=== PATIENT | male | born 1935 | race Caucasian/White ===

== ENCOUNTER 2020-08-23 12:15 | Inpatient (IN) | payer MEDICARE, BC, SELFPAY ==
[2020-08-23] VITALS (13 sets, daily range): BP systolic 124–155; BP diastolic 62–69; PULSE 102–119; RESP 15–26; TEMP 36.3–36.7; O2SAT 84–98; BMI 14.1
--- NOTE | 2020-08-23 12:19 | ECG_ITS ---
APPROVED REPORT Exam: Resting ECG HR:105 bpm ECG Measurements Heart Rate 105 AXES IA 180 P 80 QRSd 78 QRS 51 QT 362 T 66 QTc 478 Conclusion Sinus tachycardia Nonspecific ST and T wave abnormality Abnormal ECG Electronically signed by : Nehemiah Jc, 08/24/2020 17:01:47
--- NOTE | 2020-08-23 12:25 | XR_ITS ---
PROCEDURE: XR CHEST PORTABLE CLINICAL HISTORY: ams Altered mental status, altered level of consciousness, confusion, disorientation COMPARISON: No exams were available for comparison FINDINGS: The cardiomediastinal silhouette and pulmonary vascularity are within normal limits. There is patchy density in the left lower lobe suggesting a small area of infiltrate with small effusion. Incidental note made carotid artery calcifications. No acute bony abnormalities. IMPRESSION: Patchy left lower lobe infiltrate with small effusion Dictated by: Sonny Irizarry MD 08/23/2020 13:01 Sonny Irizarry MD in [facility] 08/23/2020 13:01
--- NOTE | 2020-08-23 12:26 | CT_ITS ---
PROCEDURE: CT HEAD/BRAIN WO CON CLINICAL INDICATION: ams Altered mental status, altered level of consciousness, confusion, disorientation rotate COMPARISON: No exams were available for comparison TECHNIQUE: Axial images obtained. All CT scans at the facility use one or more dose reduction, viz: automated exposure control, ma/kV adjustment per patient size (including targeted exams where dose is matched to indication, i.e. head), or iterative reconstruction technique. FINDINGS: The images are limited technically secondary to patient's inability to be properly position. Images submitted are essentially oblique coronal images. There is generalized atrophy with hypoattenuation of the periventricular white matter consistent with microangiopathic changes.. There is mild ventriculomegaly left greater than right which may be due to the underlying brain volume loss. There is opacification of the external auditory canal on both sides right more extensive than left consistent with impacted cerumen IMPRESSION: No acute intracranial finding Dictated by: Sonny Irizarry MD 08/23/2020 13:07 Sonny Irizarry MD in [facility] 08/23/2020 13:07
--- NOTE | 2020-08-23 12:33 | HMH.EDAMS ---
ED Disposition Clinical Impression: Cellulitis, PAD (peripheral artery disease) Disposition: Admitted As Inpatient Condition on Discharge: Good - Critical Care Critical Care Time: No Attestation: On , the high probability of a clinically significant, sudden or life threatening deterioration of the following system(s) required my full and direct attention, intervention and personal management. The time I documented below is in addition to time spent performing reported procedures but includes the following listed in this critical care notation. Medical Decision Making - Medical Records MR Comment: Patient is not taking any medications. He has cellulitis involving the left foot. - Prince Inquiry Pt receiving controlled substance: No Prince was queried for this patient: No Vital Signs: 08/23/20 12:16 08/23/20 13:13 08/23/20 13:30 Temperature 97.4 F L Temperature Source Oral Pulse Rate 110 H 108 H Pulse Rate [Radial] 111 H Respiratory Rate 16 26 H 20 Blood Pressure 142/62 H 135/64 Blood Pressure [Right Arm] 155/67 H Blood Pressure Mean 115 100 Blood Pressure Mean [Right Arm] 96 Blood Pressure Position Blood Pressure Position [Right Arm] Sitting 02 Sat by Pulse Oximetry 94 L 94 L Oxygen Delivery Method Room Air 08/23/20 14:00 08/23/20 15:00 08/23/20 15:30 Temperature Temperature Source Pulse Rate 109 H 113 H 102 H Pulse Rate [Radial] Respiratory Rate 24 24 22 Blood Pressure 144/65 H 137/65 143/66 H Blood Pressure [Right Arm] Blood Pressure Mean 91 Blood Pressure Mean [Right Arm] Blood Pressure Position Sitting Sitting Blood Pressure Position [Right Arm] 02 Sat by Pulse Oximetry 94 L 95 94 L Oxygen Delivery Method Room Air Room Air 08/23/20 16:00 08/23/20 16:03 Temperature 98 F Temperature Source Oral Pulse Rate 119 H 112 H Pulse Rate [Radial] Respiratory Rate 22 Blood Pressure 131/68 Blood Pressure [Right Arm] Blood Pressure Mean Blood Pressure Mean [Right Arm] Blood Pressure Position Blood Pressure Position [Right Arm] 02 Sat by Pulse Oximetry Oxygen Delivery Method Room Air - Lab Data Lab Results 08/23/20 13:14: WBC 9.9, RBC 3.56 L, Hgb 11.2 L, Hct 35.5 L, MCV 99.7 H, MCH 31.5 H, MCHC 31.6 L, RDW 13.4, Plt Count 306, MPV 7.5, Neut % (Auto) 83.0 H, Lymph % (Auto) 10.1, [place] % (Auto) 5.6, Eos % (Auto) 1.0, Baso % (Auto) 0.3, Neut # (Auto) 8.3 H, Lymph # (Auto) 1.0, [place] # (Auto) 0.6, Eos # (Auto) 0.1, Baso # (Auto) 0.0 08/23/20 13:14: Sodium 137, Potassium 4.0, Chloride 97 L, Carbon Dioxide 25, Anion Gap 19.0 H, BUN 32 H, Creatinine 1.40 H, Estimated Creat Clear 35, Estimated GFR 48 L, Est GFR ( Amer) 58 L, Glucose 80, Calcium 8.9, Total Bilirubin 1.8 H, AST 47, ALT 20, Alkaline Phosphatase 111, Total Protein 8.4 H, Albumin 4.3, Globulin 4.1 H, Albumin/Globulin Ratio 1.0 L 08/23/20 13:14: Lactate 1.8 08/23/20 13:14: Procalcitonin 0.723 08/23/20 13:14: ESR 60 H 08/23/20 13:14: C-Reactive Protein 80.5 H 08/23/20 14:00: SARS-CoV-2 (PCR) Not detected, Influenza A Untype (PCR) Not detected, Influenza Type B (PCR) Not detected 08/23/20 16:01: Urine Opiates Screen Negative, Urine Methadone Screen Negative, Ur Barbituates Screen Negative, Ur Phencyclidine Scrn Negative, Ur Amphetamines Screen Negative, U Benzodiazepines Scrn Negative, Urine Cocaine Screen Negative, U Marijuana (THC) Screen Negative Result diagrams: 08/26/20 07:40 08/26/20 07:40 Orders (Tests/Meds): ED MEDICATIONS Generic Name Dose Route Start Last Admin Trade Name Freq PRN Reason Stop Dose Admin Albuterol/Ipratropium 3 ml 08/23/20 20:00 08/26/20 14:30 Ipratropium/Albuterol 3 Ml Neb IH 09/22/20 19:59 3 ml QIDRT EVELYNE Administration Aspirin 81 mg 08/25/20 09:00 08/26/20 08:39 Aspirin Ec 81mg Tablet PO 09/24/20 08:59 81 mg DAILY EVELYNE Administration Atorvastatin Calcium 40 mg 08/25/20 21:00 08/25/20 21:02 Atorvastatin 40mg Tablet
--- NOTE | 2020-08-23 12:45 | PC.NURSE ---
PT GONE TO CT
--- NOTE | 2020-08-23 12:58 | PC.NURSE ---
pt daughter at [facility], ER MD in room speaking with her at this time
--- NOTE | 2020-08-23 13:00 | PC.NURSE ---
pt return from CT
[2020-08-23 13:28] LABS: Basophils % 0.3 % (0.1-2.0); Eosinophils # 0.1 K/mm3 (0.0-0.4); Hematocrit 35.5 % (42.0-52.0); Hemoglobin 11.2 g/dL (14.1-18.0); Lymphocytes % 10.1 % (10-50); Mean Corpuscular HGB Conc 31.6 g/dL (31.8-35.4); Mean Corpuscular Hemoglobin 31.5 pg (27.0-31.2); Mean Corpuscular Volume 99.7 fl (80-94); Mean Platelet Volume 7.5 fl (7.4-10.4); Monocytes # 0.6 K/mm3 (0.1-1.0); Monocytes % 5.6 % (1.7-9.3); Neutrophils # 8.3 K/mm3 (1.8-7.8); Platelet Count 306 K/mm3 (142-424); Red Blood Count 3.56 M/mm3 (4.60-6.20); Red Cell Distribution Width 13.4 % (11.5-17.5); White Blood Count 9.9 K/mm3 (4.8-10.8)
[2020-08-23 13:31] LABS: Chloride 97 mmol/L (98-107); Sodium 137 mmol/L (136-145)
[2020-08-23 13:34] LABS: Alanine Aminotransferase 20 U/L (12-78); Albumin Level 4.3 g/dl (3.5-5.0); Alkaline Phosphatase 111 U/L (38-126); Aspartate Amino Transferase 47 U/L (17-59); Bilirubin,Total 1.8 mg/dl (0.2-1.3); Blood Urea Nitrogen 32 mg/dl (9-20); Carbon Dioxide 25 mmol/L (22.0-30.0); Creatinine Clearance Estimated 35 mL/min (50-200); Estimated Glomerular Filt Rate 48 ml/min (>60); GFR (African American) 58 ML/MIN (>60); Globulin 4.1 g/dL (1.3-3.2); Total Protein,Serum 8.4 g/dl (6.3-8.2)
[2020-08-23 13:35] LABS: Calcium 8.9 mg/dl (8.4-10.2); Glucose 80 mg/dl (74-100); Lactic Acid 1.8 mmol/L (0.7-2.1)
--- NOTE | 2020-08-23 13:47 | XR_ITS ---
PROCEDURE: XR FOOT LT 2V CLINICAL INDICATION: pain. injury COMPARISON: No exams were available for comparison FINDINGS: Flexion deformity involves the 2nd through 5th toes. There appears to have been a prior amputation at the proximal aspect of the middle phalanx of the 4th toe. The tip of the distal phalanx of the 5th toe also appears partially absent and could be due to prior surgery. Please correlate with surgical history. No acute fracture apparent. 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 Dictated by: Sonny Irizarry MD 08/23/2020 14:07 Sonny Irizarry MD in [facility] 08/23/2020 14:07
--- NOTE | 2020-08-23 13:47 | PC.NURSE ---
pt incontinent of urine, pt clean linens changed. pt with stage one decub noted to rt buttocks, redness noted to coccyx area. pt's lt lower leg and foot with redness noted
[2020-08-23 13:53] LABS: Procalcitonin 0.723 ng/mL (0.0-2.0)
--- NOTE | 2020-08-23 14:10 | PC.WOUNDNOTE ---
notified care management of admission ER MD spoke with Dr. Boss who is length control tester for service pts
[2020-08-23 14:11] LABS: Coronavirus 19, PCR Not Detected (NotDetected); Influenza A, PCR Not Detected (NotDetected); Influenza B, PCR Not Detected (NotDetected)
--- NOTE | 2020-08-23 14:11 | PC.NURSE ---
dr roper spoke with dr padgett regarding admission
--- NOTE | 2020-08-23 14:59 | PC.NURSE ---
LIZZIE ChristiansenN at BS
--- NOTE | 2020-08-23 15:17 | PC.NURSE ---
RAMYA Christiansen gave verbal orders for Azithromycin 500 mg IV q24h and duonebs QID r/t pt also has pneumonia as read on CXR.
--- NOTE | 2020-08-23 15:18 | ECG_ITS ---
APPROVED REPORT Exam: Resting ECG HR:112 bpm ECG Measurements Heart Rate 112 AXES DE 158 P 70 QRSd 76 QRS 20 QT 354 T 34 QTc 483 Conclusion Sinus tachycardia with premature atrial complexes Anterior infarct, age undetermined Abnormal ECG Electronically signed by : Nehemiah Jc, 08/24/2020 17:01:01
--- NOTE | 2020-08-23 15:32 | HMH.HP ---
*Admission Date: 08/23/20 *Chief complaint: left foot pain *History of present illness: Mr Monterroso is an 85-year-old male patient who has not seen a physician in the last 60 years. He takes no medicines on a regular basis. He has been having difficulty with his left lower leg with pain. He did have a fall in the p.m. of 08/20 and spent the night on the floor. Neighbors did check on him and felt like he was functioning satisfactory. To note much of the history is obtained from his daughter who is present in the emergency room. She states his mental status was fine at that point. Yesterday 08/22 disorientation was noted. He felt like he was talking with his . He continued to complain of left lower leg pain and the erythema was noted. He was brought into the emergency room for evaluation. With evaluation in the emergency room white Blood cell count was 9900 with a hemoglobin of 11.2 and hematocrit of 35.5. Blood chemistries were satisfactory. BUN was 32 and creatinine 1.4. Lactate was 1.8. Chest x-ray showed patchy left lower lobe infiltrate with small effusion. CT of the head was without any acute findings. 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 In the emergency room he was started on Rocephin and then admitted for further evaluation and treatment. [facility] History Medical History: Reports:: Kidney Stones Denies:: Diabetes Mellitus Type 2, Gastroesophageal Reflux Disease(GERD) *Have you ever received a pneumonia vaccine?: No *Have you received a flu vaccine this season?: No - *Social History Smoking Status: Current every day smoker Alcohol Intake: never *Occupational Status:: retired Housing: house Household Members: none *Travel in the last 8 weeks: None Family Hx:: Cancer, Diabetes Review of Systems - Constitutional Denies fever(s) - Eyes Denies change in vision - ENT Denies ear pain, Denies sore throat - *Respiratory Reports cough (minimal), Denies chest congestion - *Gastrointestinal Denies abdominal pain, Denies change in stools, Denies heartburn, Denies bright, red blood in stools, Denies loose stools, Denies nausea, Denies vomiting Comments: States he eats well at least twice daily. He feels he is then due to hereditary. He states all his family is then. - *Genitourinary Denies difficulty urinating - *Musculoskeletal Reports abnormal walking (been using a walker), Denies joint pain - *Neurologic Reports confusion, Reports frequent falls, Denies seizure-like activity, Denies unsteadiness, Denies headache(s), Denies fainting Meds Home Medications Medication Instructions Recorded Confirmed Type No Known Home Medications 08/23/20 08/23/20 History Allergies Allergy/AdvReac Type Severity Reaction Status Date / Time iodine Allergy Verified 08/23/20 12:23 Exam Vital signs and Labs for Last 24 Hours: Temp Pulse Resp BP Pulse Ox 97.4 F L 109 H 24 144/65 H 94 L 08/23/20 12:16 08/23/20 14:00 08/23/20 14:00 08/23/20 14:00 08/23/20 14:00 Laboratory Results - last 24 hr 08/23/20 13:14: WBC 9.9, RBC 3.56 L, Hgb 11.2 L, Hct 35.5 L, MCV 99.7 H, MCH 31.5 H, MCHC 31.6 L, RDW 13.4, Plt Count 306, MPV 7.5, Neut % (Auto) 83.0 H, Lymph % (Auto) 10.1, [place] % (Auto) 5.6, Eos % (Auto) 1.0, Baso % (Auto) 0.3, Neut # (Auto) 8.3 H, Lymph # (Auto) 1.0, [place] # (Auto) 0.6, Eos # (Auto) 0.1, Baso # (Auto) 0.0 08/23/20 13:14: Sodium 137, Potassium 4.0, Chloride 97 L, Carbon Dioxide 25, Anion Gap 19.0 H, BUN 32 H, Creatinine 1.40 H, Estimated Creat Clear 35, Estimated GFR 48 L, Est GFR ( Amer) 58 L, Glucose 80, Calcium 8.9, Total Bilirubin 1.8 H, AST 47, ALT 20, Alkaline Phosphatase 111, Total Protein 8.4 H, Albumin 4.3, Globulin 4.1 H, Albumin/Globulin Ratio 1.0 L 08/23/20 13:14: Lactate 1.8 08/23/20 13:14: Procalcitonin 0.723 08/23/20 14:00: SARS-C
--- NOTE | 2020-08-23 15:34 | PC.NURSE ---
report called to floor
--- NOTE | 2020-08-23 15:46 | P.CONPHA_ITS ---
[facility] Pharmacy VTE Monitoring - Patient Demographics Admission date: 08/23/20 Report Date: 08/23/20 Time: 15:46 Allergies/Adverse Reactions: Patient Allergies iodine Allergy (Verified 08/23/20 12:23) Height: 1.78 m Weight: 63.503 kg Patient Problems: Current Active Problems Cellulitis (Acute) PAD (peripheral artery disease) (Acute) - VTE Risk Labs: VTE Related Lab Results Hgb 11.2 g/dL (14.1-18.0) L 08/23/20 13:14 Hct 35.5 % (42.0-52.0) L 08/23/20 13:14 Plt Count 306 K/mm3 (142-424) 08/23/20 13:14 BUN 32 mg/dl (9-20) H 08/23/20 13:14 Creatinine 1.40 mg/dl (0.66-1.25) H 08/23/20 13:14 Estimated Creat Clear 35 mL/min (50-200) 08/23/20 13:14 - Prophylaxis VTE Prophylaxis Ordered?: Yes Types of VTE Prophylaxis: TEDS Knee High Location of Applied Device: Right Leg
[2020-08-23 16:22] LABS: Amphetamine/Metha Screen,Urine Negative ng/ml (<1000)
[2020-08-23 16:23] LABS: Barbiturates Screen,Urine Negative ng/ml (<200); Benzodiazepines Screen,Urine Negative ng/ml (<200)
[2020-08-23 16:24] LABS: Cannabinoid Screen,Urine Negative ng/ml (<50)
[2020-08-23 16:25] LABS: Cocaine Screen,Urine Negative ng/ml (<300); Methadone Screen,Urine Negative ng/ml (<300)
[2020-08-23 16:26] LABS: Opiate Screen,Urine Negative ng/ml (<300); Phencyclidine Screen,Urine Negative ng/ml (<25)
--- NOTE | 2020-08-23 16:47 | PC.NURSE ---
Consent obtained from pt's daughter for pictures. Pictures obtained of BLE. Per order from Nolberto Araujo LLE was wrapped w/ cecily. Vishnu Nation w/ Dr. Waldrop's office aware of consult, currently @ bedside.
[2020-08-23 17:27] LABS: C-Reactive Protein 80.5 mg/L (0-4)
--- NOTE | 2020-08-23 17:36 | PC.NURSE ---
L ankle, scaly w/ +2 edema noted. Red, warm. Serosang drainage present to top of ankle.
--- NOTE | 2020-08-23 17:39 | PC.WOUNDNOTE ---
L foot, toes in poor condition. Top of foot noted to be sloughing, edematous. Malodorous.
--- NOTE | 2020-08-23 17:40 | HMH.ORTHOCON ---
*Admission Date: 08/23/20 <Lamar Nation - 08/23/20 18:21> *Reason for consult:: Left lower leg and foot cellulitis and edema with thickened nails <Lamar Nation - 08/23/20 18:21> *History of present illness: Mr Monterroso is an 85-year-old male patient who has not seen a physician in the last 60 years. He takes no medicines on a regular basis. He has been having difficulty with his left lower leg with pain. He did have a fall in the p.m. of 08/20 and spent the night on the floor. Neighbors did check on him and felt like he was functioning satisfactory. To note much of the history is obtained from his daughter who is present in the emergency room. She states his mental status was fine at that point. Yesterday 08/22 disorientation was noted. He felt like he was talking with his . He continued to complain of left lower leg pain and the erythema was noted. He was brought into the emergency room for evaluation. With evaluation in the emergency room white Blood cell count was 9900 with a hemoglobin of 11.2 and hematocrit of 35.5. Blood chemistries were satisfactory. BUN was 32 and creatinine 1.4. Lactate was 1.8. Chest x-ray showed patchy left lower lobe infiltrate with small effusion. CT of the head was without any acute findings. 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 In the emergency room he was started on Rocephin and then admitted for further evaluation and treatment. Podiatry was consulted to see the patient for his Left lower leg and foot cellulitis and edema with thickended nails. Patient was resting in the bed with his daughter at his bedside. Patient lives alone with his dog and has not had routine checkups by a Doctor in over 30+ years. He does present B/L lower leg edema,erythema to b/l legs and feet. They are tender to touch, skin is parched, I didn't see any active drainage to culture. There was dry scabs flaking off the legs and feet. There is the presence of animal hair on legs and toes. I was not able to palpate DP/PT pedal pulses so he will need ELADIA's tomorrow to check blood flow and circulation status. 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 I was able to clean the legs off with hibbiclens and using nail nippers to debride the nails down. The Left leg and foot was dressed with betadine soaked 4x4 gauze, DSD, kerlex. <ChapisLamar L 08/23/20 18:21> [facility] History I have reviewed the patient's past medical history: Yes <Lamar Nation 08/23/20 18:21> Medical History: Reports:: Kidney Stones Denies:: Cancer, Diabetes Mellitus Type 1, Diabetes Mellitus Type 2, Gastroesophageal Reflux Disease(GERD), Internal Pacemaker, MRSA <Lamar Nation 08/23/20 18:21> *Have you ever received a pneumonia vaccine?: No <Lamar Nation 08/23/20 18:21> *Have you received a flu vaccine this season?: No (Became ill when given vaccine in 1950s.) <Lamar Nation 08/23/20 18:21> Other Surgeries: No: Pacemaker <Lamar Nation 08/23/20 18:21> Amputation: No <Lamar Nation 08/23/20 18:21> Fractures: No <Lamar Nation 08/23/20 18:21> - *Social History Smoking Status: Current every day smoker <Lamar Nation 08/23/20 18:21> Tobacco Type: cigarettes <Lamar Nation 08/23/20 18:21> # Packs/Day (cigarettes): 1 <Lamar Nation 08/23/20 18:21> Alcohol Intake: never <Lamar Nation 08/23/20 18:21> Alcohol Intake Frequency:: holidays/special occasions only <Lamar Nation 08/23/20 18:21> *Occupational Status:: retired <Lamar Nation 08/23/20 18:21> Housing: house <Lamar Nation 08/23/20 18:21> Household Members: none <Lamar Nation 08/23/20 18:21> *Travel in the last 8 weeks: None <Lamar Nation 08/23/20 18:21> Family Hx:: Cancer, Diabetes <Lamar Nation 08/23/20 18:21> R
--- NOTE | 2020-08-23 17:41 | PC.WOUNDNOTE ---
RLE edematous. R Hankins scaly and dry. No drainage present. Is able to move legs freely. Reports breakdown on his BLE have been going on for about 2 weeks. Daughter is at bedside, states she is unsure how long it has been going on because her father has not c/o his legs bothering him until today.
--- NOTE | 2020-08-23 18:15 | PC.NURSE ---
Pt c/o pain in BLE, rating 10/[address] Boss notified of this via phone @ 1826, pt does not have any pain medication ordered. MD states that he will be to floor shortly to assess pt. This nurse went to pt's room and updated pt and family members that MD has been notified and that he will be coming to floor to see pt. Pain re-assessed, pt now stating that his pain is in his bilat palms. When asked if he was still having pain in his legs now, pt states yes, but its liveable . Daughter and nephew remain @ bedside. Call jcakson w/in reach. Awaiting arrival of .
[2020-08-23 18:21] LABS: Erythrocyte Sedimentation Rate 60 mm/hr (0-20)
[2020-08-24] VITALS (31 sets, daily range): BP systolic 97–134; BP diastolic 36–70; PULSE 70–108; RESP 17–24; TEMP 36.2–36.9; O2SAT 88–100; BMI 13.9
--- NOTE | 2020-08-24 | IR_ITS ---
APPROVED REPORT Patient Location: Inpatient Pulpit Operator: LINDA Olivia RT (R) PROCEDURES Right femoral arterial access Catheter placed in the left common iliac artery Left common iliac artery antegrade angiogram Catheter placement of the left common femoral artery Left common femoral artery angiogram with additional angiography of the left profunda femoris artery Catheter placement in the left anterior tibialis artery Left anterior tibialis artery selective angiogram Stent deployment to the left anterior tibialis artery Stent deployment to the left PT trunk Stent deployment to the left popliteal artery Stent deployment to the left superficial femoral artery Stent deployment to the left common femoral artery INDICATION Linh claudication class V, Limb threatening ischemia, Pulseless cold left calf and foot, Occluded left superficial femoral artery left popliteal artery left PT trunk and left anterior tibialis artery Informed consent was obtained prior to the procedure. COMPLICATIONS NONE Estimated Blood Loss: LESS THAN 10 ML TECHNIQUE 1% lidocaine used anesthetize the right groin the right femoral artery was accessed via the Salinger technique and a 4 [place] sheath was placed in the form artery. A 6 4 [place] BOSE catheter was placed in the left common iliac artery and antegrade angiography was performed. The catheter was then advanced to the left common femoral artery and left profunda femoris artery and left SFA angiography was performed. Following this therapeutic heparin was administered and the 4 [place] sheath was exchanged for a 45 cm destination 6 [place] sheath. A trailblazer catheter was then advanced over an advantage wire and the catheter and wire were used to push through the chronic occlusion throughout the left SFA left popliteal artery left PT trunk and eventually recanalization occurred to the left anterior tibialis artery. The catheter was advanced and the wire was pulled back with selective angiography involving the anterior tibialis artery which demonstrated patency and reentering of the true lumen. At this point a 4 mm x 200 mm balloon was used to predilate the left AT left PT trunk left popliteal artery and left superficial femoral artery. A 6 mm x 200 mm self-expanding stent was placed in the left anterior tibialis artery extending back into the left PT trunk and left popliteal artery. An additional 6 mm x 200 mm self-expanding stent was then placed proximal to this yet still overlapping back into the left superficial femoral artery. A 7 mm x 120 mm self-expanding stent was then placed in the left superficial femoral artery extending back into the left common femoral artery. This was deployed. A 5 mm x 200 mm balloon was then deployed at 5 maged in the left anterior tibialis artery extending retrograde and then 12 maged in the popliteal artery then 12 maged in the superficial femoral artery and then 12 maged back into the common femoral artery. After achieving excellent angiographic results there was wide patency with single inline runoff into the left foot. At the end the procedure the apparatus was removed the sheath was removed groin was reprepped closure changed good hemostasis was achieved using Perclose device patient was transferred to the postop holding in stable condition ANGIOGRAPHIC RESULTS Left common femoral artery is patent. Left internal and external iliac arteries patent. Left common femoral artery is patent The left profunda femoris artery is patent The left superficial femoral artery is occluded throughout its entire course into the left popliteal artery as well as occlusion of the left PT trunk and proximal left anterior tibialis artery At the end of
--- NOTE | 2020-08-24 03:15 | PC.NURSE ---
Pt alert to name, birthday and time. Pt did not c/o pain after given 100mg of gabapentin per apr. Pt has been confused throughout the night, pulling leads and gown off, given full bed bath and linen change. Incontinenent of urine, brief applied. Drsg on LLE CDI. NSR on tele. IV patent, NS @ 100. VSS, call light in reach, no concerns at this time.
--- NOTE | 2020-08-24 08:28 | HMH.ORTHPN ---
Subjective Date: 08/24/20 <Lamar Nation - 08/24/20 08:29> Time: 08:29 <Lamar Nation - 08/24/20 08:29> Principal diagnosis: Left leg cellulits <Lamar Nation - 08/24/20 08:29> Interval history: Patient was asleep when I came into the room. Patient denied any complaints of pain to the lower extremities. The dressing was removed and the edema has improved since yesterday's dressing change. I'll leave the dressing off for now until patient is going to get ABIs this morning will follow up with results. <Lamar Nation - 08/24/20 09:07> PN: Obj Ex Vital signs: Temp Pulse Resp BP Pulse Ox 98.2 F 106 H 17 131/58 L 95 08/24/20 11:18 08/24/20 11:18 08/24/20 11:18 08/24/20 11:18 08/24/20 11:18 <Didi Waldrop - 08/24/20 13:03> Temp Pulse Resp BP Pulse Ox 98.5 F 94 H 19 107/51 L 96 08/24/20 07:41 08/24/20 07:41 08/24/20 07:41 08/24/20 07:41 08/24/20 07:41 <Lamar Nation - 08/24/20 08:29> - Constitutional no acute distress <Lamar Nation Jose - 08/24/20 09:07> - Routine HEENT Exam Head: Present: normocephalic <ChapisLaamr Jose 08/24/20 09:07> Eye: Present: EOMI <ChapisLamar Jose - 08/24/20 09:07> ENT: Present: mucous membranes moist <ChapisLamar Jose 08/24/20 09:07> - Routine Neck Exam Present: full ROM, trachea midline <ChapisLamar Jose - 08/24/20 09:07> - Routine Respiratory Exam Absent: respiratory distress <ChapisLamar L 08/24/20 09:07> - Routine Cardiovascular Exam Present: RRR <ChapisLamar L - 08/24/20 09:07> - Routine Extremities Exam Present: edema (Edema has improved to lower leg and foot, erythema is less this morning as well.). Absent: pulses intact (Nonpalpable DP/PT bilateral pulses. Patient to obtain ABIs this morning.), normal capillary refill <TimuryueLamar luong Jose - 08/24/20 09:07> - Detailed Lower Extremity Exam Leg image: 1 - Left leg cellulits noted. Leg and foot has erythema and sloughing skin noted, has improved since cleaning and dressing the leg from yesterday. Left dorsal foot and lateral ankle has patchy places of irritated skin from the edema. Skin is tender to touch. No active drainge to culture. Dressing was removed on left for the patient to obtain ABIs this morning. Nails x 10 was trimmed yesterday. 2 - Right lower leg very dry and flaky skin noted. Mild edema noted as well, this has also improved since yesterday. No dressing required.No palpable pedal pulses DP/PT were noted to either foot.Patient will be getting ELADIA testing done this morning. <ChapisLamar L - 08/24/20 09:07> - Routine Skin Exam Present: erythema, dry, cracked <ChapisLamar L - 08/24/20 09:07> Comments: Cellulits noted to his left leg and foot. No acitve drainage noted. Left foot's skin is peeling and sloughing off in places. <ChapisLamar L - 08/24/20 09:07> - Routine Neurological Exam Present: alert, moving all extremities, normal tone, vision grossly intact. Absent: hearing grossly intact ([place]) <Lamar Nation - 08/24/20 09:07> - Routine Psychiatric Exam Present: normal affect, cooperative <Lamar Nation 08/24/20 09:07> Progress Note: A&P (1) Left lower lobe pneumonia Status: Acute (2) Frequent falls Status: Acute (3) Cellulitis Status: Acute (4) PAD (peripheral artery disease) Status: Acute (5) Onychogryposis of toenail Status: Acute (6) Onychomycosis Status: Acute (7) Pain due to onychomycosis of nail Status: Acute (8) Edema of lower extremity Status: Acute (9) Decreased pedal pulses Status: Acute (10) Other specified symptoms and signs involving the circulatory and respiratory systems Status: Acute <Lamar Nation - 08/24/20 09:08> (1) Left lower lobe pneumonia Status: Acute (2) Frequent falls Status: Acute (3) Cellulitis Status: Acute (4) PAD (peripheral a
--- NOTE | 2020-08-24 08:37 | HMH.ACPN2 ---
Internal Medicine - PN: Subj *Date: 08/24/20 *Time: 08:37 Interval history: Patient states he is feeling about the same today. He has not really woken up. He states is not hungry this morning. Podiatry is in the room changing his foot dressings. Patient denies any pain this morning. Exam Vital signs and Labs for Last 24 Hours: Temp Pulse Resp BP Pulse Ox 98.5 F 94 H 19 107/51 L 96 08/24/20 07:41 08/24/20 07:41 08/24/20 07:41 08/24/20 07:41 08/24/20 07:41 Laboratory Results - last 24 hr 08/23/20 13:14: WBC 9.9, RBC 3.56 L, Hgb 11.2 L, Hct 35.5 L, MCV 99.7 H, MCH 31.5 H, MCHC 31.6 L, RDW 13.4, Plt Count 306, MPV 7.5, Neut % (Auto) 83.0 H, Lymph % (Auto) 10.1, [place] % (Auto) 5.6, Eos % (Auto) 1.0, Baso % (Auto) 0.3, Neut # (Auto) 8.3 H, Lymph # (Auto) 1.0, [place] # (Auto) 0.6, Eos # (Auto) 0.1, Baso # (Auto) 0.0 08/23/20 13:14: Sodium 137, Potassium 4.0, Chloride 97 L, Carbon Dioxide 25, Anion Gap 19.0 H, BUN 32 H, Creatinine 1.40 H, Estimated Creat Clear 35, Estimated GFR 48 L, Est GFR ( Amer) 58 L, Glucose 80, Calcium 8.9, Total Bilirubin 1.8 H, AST 47, ALT 20, Alkaline Phosphatase 111, Total Protein 8.4 H, Albumin 4.3, Globulin 4.1 H, Albumin/Globulin Ratio 1.0 L 08/23/20 13:14: Lactate 1.8 08/23/20 13:14: Procalcitonin 0.723 08/23/20 13:14: ESR 60 H 08/23/20 13:14: C-Reactive Protein 80.5 H 08/23/20 14:00: SARS-CoV-2 (PCR) Not detected, Influenza A Untype (PCR) Not detected, Influenza Type B (PCR) Not detected 08/23/20 16:01: Urine Opiates Screen Negative, Urine Methadone Screen Negative, Ur Barbituates Screen Negative, Ur Phencyclidine Scrn Negative, Ur Amphetamines Screen Negative, U Benzodiazepines Scrn Negative, Urine Cocaine Screen Negative, U Marijuana (THC) Screen Negative I & O for Last 24 hours: Intake & Output 08/21/20 08/22/20 08/23/20 08/24/20 11:59 11:59 11:59 11:59 Intake Total 120 / 120 Output Total 100 / 100 Balance Weight 97 lb 9 oz - Constitutional no acute distress - *Routine Respiratory Exam Present: decreased breath sounds, rales (Faint rales in left base), rhonchi - *Routine Cardiovascular Exam Present: RRR - *Routine Abdominal Exam Present: soft, normoactive bowel sounds. Absent: tenderness - *Routine Extremities Exam Present: edema (Less edema of the bilateral lower extremities, there is still erythema of the left lower leg). Absent: cyanosis, clubbing - *Routine Skin Exam Present: warm. Absent: rash - *Routine Neurological Exam Present: alert, oriented X3 Assessment and Plan (1) Left lower lobe pneumonia Status: Acute Category: Medical Code(s): J18.9 - Pneumonia, unspecified organism (2) Frequent falls Status: Acute Category: Medical Code(s): R29.6 - Repeated falls (3) Cellulitis Status: Acute Category: Medical Code(s): L03.90 - Cellulitis, unspecified (4) PAD (peripheral artery disease) Status: Acute Category: Medical Code(s): I73.9 - Peripheral vascular disease, unspecified (5) Onychogryposis of toenail Start date: 08/23/20 Status: Acute Category: Medical Code(s): L60.2 - Onychogryphosis (6) Onychomycosis Start date: 08/23/20 Status: Acute Category: Medical Code(s): B35.1 - Tinea unguium (7) Pain due to onychomycosis of nail Start date: 08/23/20 Status: Acute Category: Medical Code(s): B35.1 - Tinea unguium; M79.609 - Pain in unspecified limb (8) Edema of lower extremity Start date: 08/23/20 Status: Acute Category: Medical Code(s): R60.0 - Localized edema (9) Decreased pedal pulses Start date: 08/23/20 Status: Acute Category: Medical Code(s): R09.89 - Other specified symptoms and signs involving the circulatory and respiratory systems (10) Other specified symptoms and signs involving the circulatory and respiratory systems Start date: 08/23/20 Status: Acute Category: Medical Code(s): R09.89 - Other specified symptoms and signs inv
--- NOTE | 2020-08-24 10:34 | SW/DCPLANNER ---
Addendum entered by [facility] 08/24/20 13:12: Natali with [facility] has called stating that she is reviewing referral at this time. Natali has stated that she will follow up in the AM with CM regarding this referral. Addendum entered by [facility] 08/24/20 12:56: Patient information has been faxed to [facility] and [facility]. Addendum entered by [facility] 08/24/20 11:38: Deep with PT has stated that patient will need placement at time of discharge. I spoke with Kiki and she is only interested in [facility]. I have also explained to Kiki that patient will have to be private pay: agreeable only if necessary at time of discharge. I will follow up with [facility] facilities this morning. Original Note: I spoke with this patients daughter (Kiki) this morning regarding discharge plans once patient is medically stable for discharge. Kiki stated that patient currently resides at home alone and was doing very well until the past couple of days. Kiki stated that once patient is stable for discharge she prefer patient return home as long as physically capable. I did explain home health services vs placement (private pay due to OBS status): Kiki stated that she understood different disposition plans but again would prefer patient to return home with home health services. Kiki prefers to use [facility] of at time of discharge. Patient has all necessary DME at home per Kiki. Patient is currently wearing home O2: if needed at time of discharge I will order home O2/portable. Discharge date is unknown at this time. I will continue to follow up with: patient, family and Dr Boss.
--- NOTE | 2020-08-24 10:35 | PC.NURSE ---
Sputum induction- pt given neb treatment with hpyertonic saline. Pt had dry cough and cup was left at bedside. Pt and daughter asked to inform staff of any productive cough.
--- NOTE | 2020-08-24 11:44 | HMH.PTEV ---
Physical Therapy Evaluation Rehab PT IP Evaluation Start: 08/24/20 09:52 Freq: ONCE Status: Active Protocol: Document 08/24/20 11:39 SILVINO (Rec: 08/24/20 11:44 SILVINO [id number]) Subjective/History History History Mr Monterroso is an 85-year-old male patient who has not seen a physician in the last 60 years. He takes no medicines on a regular basis. He has been having difficulty with his left lower leg with pain. He did have a fall in the p.m. of 08/20 and spent the night on the floor. Neighbors did check on him and felt like he was functioning satisfactory. To note much of the history is obtained from his daughter who is present in the emergency room. She states his mental status was fine at that point. Yesterday 08/22 disorientation was noted. He felt like he was talking with his . He continued to complain of left lower leg pain and the erythema was noted. He was brought into the emergency room for evaluation. - copied from H&P Subjective Subjective Pt reports he feels shaky and has been weak recently Rehab PT IP Eval Objective Appearance Patient Behavior Cooperative Patient Orientation Person,Place,Time Difficulty following instructions mild Speech Pattern Appropriate Ambulation Patient Able to Ambulate No Balance Ability to Arise Unable Sitting Balance Leans or slides in chair Standing Balance Unsteady Dynamic Sitting Balance Ability Fair Dynamic Standing Balance Ability Zero Transfers Bed Transfer Ability Supervision/Stand by Chair Transfer Ability Supervision/Stand by Sit to Stand Bed Transfer Ability Maximum x 1 (75% assist) Sit to Stand Chair Transfer Ability Maximum x 1 (75% assist) ROM All Extremities PT ROM Status WFL MMT All Extremities PT MMT ABN Abnormal MMT Grade 3/5 Rehab PT IP prob,goals,plan Problems Date of Evaluation: 08/24/20 PT IP Problem
--- NOTE | 2020-08-24 14:16 | HMH.CNCARD ---
History of Present Illness Consult date: 08/24/20 Requesting physician: Mikal Boss Chief complaint: LLE pain History of present illness: This is a 89-year-old white gentleman who presented to the emergency department with complaints of left lower extremity pain. His daughter also reported that he had some disorientation and confusion and that is why she brought him into the emergency department. The patient has not seen a physician in approximately 60 years. He takes no medications on a daily basis. The patient reports that he had a fall on 08/20/2020 and spent the night lying on the floor. Neighbors checked on him and got him up and he was functioning appropriately at that time. On 08/22/2020 his daughter reports that he was disoriented and confused. He was talking to his . He continued to have left lower extremity pain and erythema so he was brought into the emergency department. The patient has been being treated for cellulitis of the left lower extremity with IV antibiotics. He had an ELADIA today which was highly abnormal. He denies any chest pain or pressure. He denies any shortness of breath. He does have edema in the left lower extremity as well as the right lower extremity but the left leg is worse than the right leg. The patient does have bilateral lower extremity edema and erythema. His legs are tender to the touch. His left lower extremity is weeping serous fluid. His toenails are thickened and his skin is very dry and flaky. I cannot palpate a pedal pulse bilaterally. He denies any fever, chills, nausea, vomiting, diarrhea, PND or orthopnea. [facility] History I have reviewed the patient's past medical history: Yes Medical History: Reports:: Kidney Stones, Peripheral Artery Disease Denies:: Cancer, Coronary Artery Disease, Diabetes Mellitus Type 1, Diabetes Mellitus Type 2, Gastroesophageal Reflux Disease(GERD), Hyperlipidemia, Hypertension, Internal Pacemaker, MRSA *Have you ever received a pneumonia vaccine?: No *Have you received a flu vaccine this season?: No (Became ill when given vaccine in 1950s.) Other Surgeries: No: Pacemaker Amputation: No Fractures: No - *Social History Smoking Status: Current every day smoker Tobacco Type: cigarettes # Packs/Day (cigarettes): 1 Alcohol Intake: never Alcohol Intake Frequency:: holidays/special occasions only *Occupational Status:: retired Housing: house Household Members: none *Travel in the last 8 weeks: None Family Hx:: Cancer, Diabetes Meds Home Medications Medication Instructions Recorded Confirmed Type No Known Home Medications 08/23/20 08/23/20 History Allergies Allergy/AdvReac Type Severity Reaction Status Date / Time iodine Allergy Verified 08/23/20 12:23 Exam Vital signs and Labs for Last 24 Hours: Temp Pulse Resp BP Pulse Ox 98.2 F 100 H 17 131/58 L 95 08/24/20 11:18 08/24/20 12:00 08/24/20 11:18 08/24/20 11:18 08/24/20 11:18 Laboratory Results - last 24 hr 08/23/20 13:14: ESR 60 H 08/23/20 13:14: C-Reactive Protein 80.5 H 08/23/20 14:00: SARS-CoV-2 (PCR) Not detected, Influenza A Untype (PCR) Not detected, Influenza Type B (PCR) Not detected 08/23/20 16:01: Urine Opiates Screen Negative, Urine Methadone Screen Negative, Ur Barbituates Screen Negative, Ur Phencyclidine Scrn Negative, Ur Amphetamines Screen Negative, U Benzodiazepines Scrn Negative, Urine Cocaine Screen Negative, U Marijuana (THC) Screen Negative I & O for Last 24 hours: Intake & Output 08/21/20 08/22/20 08/23/20 08/24/20 23:59 23:59 23:59 23:59 Intake Total 120 / 120 480 / 480 Output Total 100 / 100 Balance 20 / 20 480 / 480 Weight 98 lb 7 oz 97 lb 9 oz Narrative: EKG is sinus tachycardia with a rate of 106 and poor R wave progression. Telemetry strip is sinus rhythm with a rate of 85 - Constitutional no acute distress, chronically ill appearing - *Routine HEENT Exam Head: Present: normocephalic, atraumatic Eye: Present: EOMI, PERRL
--- NOTE | 2020-08-24 14:43 | PC.NURSE ---
Pt down to microbiology lab assistant for run off at this time.
--- NOTE | 2020-08-24 14:44 | PC.NURSE ---
Keren Chao APRN and Aby saldana RN made aware pt did have lunch.
[2020-08-24 15:35] LABS: CATHL Activated Clotting Time 222 SEC (74-125)
--- NOTE | 2020-08-24 17:32 | US_ITS ---
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 Pt hadsnt seen a Dr in 30 yrs Risk Factors Current Smoker Pressures/Indices Right Indices Left Indices Brachial 127.00 mmHg Brachial 126.00 mmHg Low Thigh 130.00 mmHg 1.02 Low Thigh 71.00 mmHg 0.56 Calf 59.00 mmHg 0.46 Calf Ankle(PT) 51.00 mmHg 0.40 Ankle(PT) Ankle(DP) 65.00 mmHg 0.51 Ankle(DP) Findings RT ELADIA 0.5 LT PBI 0.6, unable to obtain pulses in the ankle. Unable to obtain TBI's due to movement. Dimimished pulses and waveforms. Limited exam due to movement. Conclusion RT ELADIA 0.5 LT PBI 0.6, unable to obtain pulses in the ankle. Unable to obtain TBI's due to movement. Dimimished pulses and waveforms. Limited exam due to movement. Severe bilateral arterial disease Electronically signed by : Sonny Irizarry MD 08/24/2020 15:30:09
--- NOTE | 2020-08-24 17:33 | PC.NURSE ---
Pt is back from crime lab analyst at this time, resting. Pt is drowsy at this time. VSS. Manual BP obtained and was 110/40 in R arm. IVF's infusing as ordered per apr. Dsg to R groin is cdi, with no drainage. Daughter is at bedside. Pt has been alert to self this shift. CB in reach. Has been nsr on tele. Scattered rhonchi in lilli lung marcus, continues to remain on 2 L NC. Pt has denied pain this shift. BS x 4. BLE open to air. Plus one pitting edema to RLE. Mx continues.
--- NOTE | 2020-08-24 18:35 | PC.NURSE ---
Called and spoke with Dr. Kinsey content production specialist for 1820, this RN reported MAP's in the 60's - with the highest one being 68. Pt is still resting and drowsy,sedated at this time. He ordered a 300 ml bolus x 1 IV of NS. BP is now 107/54, HR 78, 100% 2 L NC and site to R groin is cdi.
[2020-08-25] VITALS (16 sets, daily range): BP systolic 100–144; BP diastolic 50–70; PULSE 50–120; RESP 17–22; TEMP 36.4–36.9; O2SAT 92–100; BMI 14.6; BMI 14.5
--- NOTE | 2020-08-25 04:15 | PC.NURSE ---
shift summary pt is alert but only oriented to person. pts lung sounds are diminished with sats maintained 95% or above on 2L via NC. pts BP has maintained stable. rt groin cath site has remained cdi. pt has rested comfortably this shift with no complaints. no acute changes will continue to monitor.
[2020-08-25 08:09] LABS: Basophils % 0.1 % (0.1-2.0); Eosinophils % 0.1 % (0.1-12.0); Hematocrit 28.9 % (42.0-52.0); Hemoglobin 9.4 g/dL (14.1-18.0); Lymphocytes # 0.7 K/mm3 (0.7-4.5); Lymphocytes % 10.2 % (10-50); Mean Corpuscular HGB Conc 32.6 g/dL (31.8-35.4); Mean Corpuscular Hemoglobin 32.4 pg (27.0-31.2); Mean Corpuscular Volume 99.5 fl (80-94); Mean Platelet Volume 7.6 fl (7.4-10.4); Monocytes # 0.4 K/mm3 (0.1-1.0); Monocytes % 5.7 % (1.7-9.3); Neutrophils # 5.7 K/mm3 (1.8-7.8); Platelet Count 210 K/mm3 (142-424); Red Blood Count 2.91 M/mm3 (4.60-6.20); Red Cell Distribution Width 13.3 % (11.5-17.5); White Blood Count 6.8 K/mm3 (4.8-10.8)
[2020-08-25 08:22] LABS: Chloride 106 mmol/L (98-107); Potassium 3.9 mmoL/L (3.5-5.1); Sodium 140 mmol/L (136-145)
[2020-08-25 08:25] LABS: Anion Gap 12.9 mEq/L (5-15); Blood Urea Nitrogen 20 mg/dl (9-20); Carbon Dioxide 25 mmol/L (22.0-30.0); Creatinine Clearance Estimated 30 mL/min (50-200); Estimated Glomerular Filt Rate 58 ml/min (>60); GFR (African American) 70 ML/MIN (>60)
[2020-08-25 08:26] LABS: Glucose 128 mg/dl (74-100)
[2020-08-25 08:35] LABS: Calcium 7.8 mg/dl (8.4-10.2)
--- NOTE | 2020-08-25 08:37 | HMH.ACPN2 ---
Internal Medicine - PN: Subj *Date: 08/25/20 *Time: 08:37 Interval history: Patient states he feels a little bit better today. Denies any pain and states he slept well. He hasn't eaten breakfast yet this morning. He was seen by cardiology yesterday and taken to the [facility]. He had successful percutaneous revascularization of the left leg and cardiology recommends he remain on aspirin and Plavix for at least 1 month and then convert to Xarelto 2.5 mg twice daily plus a baby aspirin daily. Physical therapy saw the patient and felt he would require short-term rehab due to his severe risk for falls. Exam Vital signs and Labs for Last 24 Hours: Temp Pulse Resp BP Pulse Ox 98.2 F 93 H 17 116/51 L 92 L 08/25/20 07:28 08/25/20 07:28 08/25/20 07:28 08/25/20 07:28 08/25/20 07:28 Laboratory Results - last 24 hr 08/24/20 15:26: Activated Clotting Time 222 H* 08/25/20 07:51: WBC 6.8 D, RBC 2.91 L, Hgb 9.4 L, Hct 28.9 L, MCV 99.5 H, MCH 32.4 H, MCHC 32.6, RDW 13.3, Plt Count 210 D, MPV 7.6, Neut % (Auto) 84.0 H, Lymph % (Auto) 10.2, [place] % (Auto) 5.7, Eos % (Auto) 0.1, Baso % (Auto) 0.1, Neut # (Auto) 5.7, Lymph # (Auto) 0.7, [place] # (Auto) 0.4, Eos # (Auto) 0.0, Baso # (Auto) 0.0 08/25/20 07:51: Sodium 140, Potassium 3.9, Chloride 106, Carbon Dioxide 25, Anion Gap 12.9, BUN 20 D, Creatinine 1.20, Estimated Creat Clear 30, Estimated GFR 58 L, Est GFR ( Amer) 70 D, Glucose 128 H, Calcium 7.8 L D I & O for Last 24 hours: Intake & Output 08/22/20 08/23/20 08/24/20 08/25/20 11:59 11:59 11:59 11:59 Intake Total 360 / 360 800 / 800 Output Total 100 / 100 100 / 100 Balance 260 / 260 700 / 700 Weight 97 lb 9 oz 102 lb 4 oz - Constitutional no acute distress - *Routine Respiratory Exam Present: decreased breath sounds, rhonchi - *Routine Cardiovascular Exam Present: RRR - *Routine Abdominal Exam Present: soft, normoactive bowel sounds. Absent: tenderness - *Routine Extremities Exam Absent: cyanosis, clubbing, edema - *Routine Skin Exam Present: warm. Absent: rash Comments: Left lower leg still with erythema. There is a loose dressing in place. - *Routine Neurological Exam Present: alert Assessment and Plan (1) Abnormal ankle brachial index (ELADIA) Status: Acute Category: Medical Code(s): R68.89 - Other general symptoms and signs (2) PAD (peripheral artery disease) Status: Acute Category: Medical Code(s): I73.9 - Peripheral vascular disease, unspecified (3) Decreased pedal pulses Start date: 08/23/20 Status: Acute Category: Medical Code(s): R09.89 - Other specified symptoms and signs involving the circulatory and respiratory systems (4) Left lower lobe pneumonia Status: Acute Category: Medical Code(s): J18.9 - Pneumonia, unspecified organism (5) Frequent falls Status: Acute Category: Medical Code(s): R29.6 - Repeated falls (6) Cellulitis Status: Acute Category: Medical Code(s): L03.90 - Cellulitis, unspecified (7) Onychogryposis of toenail Start date: 08/23/20 Status: Acute Category: Medical Code(s): L60.2 - Onychogryphosis (8) Onychomycosis Start date: 08/23/20 Status: Acute Category: Medical Code(s): B35.1 - Tinea unguium (9) Pain due to onychomycosis of nail Start date: 08/23/20 Status: Acute Category: Medical Code(s): B35.1 - Tinea unguium; M79.609 - Pain in unspecified limb (10) Edema of lower extremity Start date: 08/23/20 Status: Acute Category: Medical Code(s): R60.0 - Localized edema (11) Other specified symptoms and signs involving the circulatory and respiratory systems Start date: 08/23/20 Status: Acute Category: Medical Code(s): R09.89 - Other specified symptoms and signs involving the circulatory and respiratory systems - Assessment and plan all Dx Assessment and Plan for all problems:: The patient's family wants to take him home. Will discuss further care with
--- NOTE | 2020-08-25 09:38 | P.PN_ITS ---
Subjective Date: 08/25/20 Time: 09:38 Principal diagnosis: Left leg cellulits Interval history: 85 yo WM in bed in NAD. Left leg warm with bandages around ankle/foot area with toes red and warm. Denies any chest pain or leg pain. Angiogram results from yesterday reviewed with patient and stressed need to continue DAPT. Exam Vital signs and Labs for Last 24 Hours: Temp Pulse Resp BP Pulse Ox 98.2 F 93 H 17 116/51 L 92 L 08/25/20 07:28 08/25/20 07:28 08/25/20 07:28 08/25/20 07:28 08/25/20 07:28 Laboratory Results - last 24 hr 08/24/20 15:26: Activated Clotting Time 222 H* 08/25/20 07:51: WBC 6.8 D, RBC 2.91 L, Hgb 9.4 L, Hct 28.9 L, MCV 99.5 H, MCH 32.4 H, MCHC 32.6, RDW 13.3, Plt Count 210 D, MPV 7.6, Neut % (Auto) 84.0 H, Lymph % (Auto) 10.2, [place] % (Auto) 5.7, Eos % (Auto) 0.1, Baso % (Auto) 0.1, Neut # (Auto) 5.7, Lymph # (Auto) 0.7, [place] # (Auto) 0.4, Eos # (Auto) 0.0, Baso # (Auto) 0.0 08/25/20 07:51: Sodium 140, Potassium 3.9, Chloride 106, Carbon Dioxide 25, Anion Gap 12.9, BUN 20 D, Creatinine 1.20, Estimated Creat Clear 30, Estimated GFR 58 L, Est GFR ( Amer) 70 D, Glucose 128 H, Calcium 7.8 L D I & O for Last 24 hours: Intake & Output 08/22/20 08/23/20 08/24/20 08/25/20 11:59 11:59 11:59 11:59 Intake Total 360 / 360 800 / 800 Output Total 100 / 100 100 / 100 Balance 260 / 260 700 / 700 Weight 97 lb 9 oz 102 lb 4 oz - Constitutional no acute distress - *Routine Respiratory Exam Present: CTA bilaterally - *Routine Cardiovascular Exam Present: RRR - *Routine Neurological Exam Present: alert, oriented X3 Progress Note: A&P (1) Abnormal ankle brachial index (ELADIA) Status: Acute (2) PAD (peripheral artery disease) Status: Acute (3) Decreased pedal pulses Status: Acute (4) Left lower lobe pneumonia Status: Acute (5) Frequent falls Status: Acute (6) Cellulitis Status: Acute (7) Onychogryposis of toenail Status: Acute (8) Onychomycosis Status: Acute (9) Pain due to onychomycosis of nail Status: Acute (10) Edema of lower extremity Status: Acute (11) Other specified symptoms and signs involving the circulatory and respiratory systems Status: Acute (12) Anemia Status: Acute Assessment and Plan for All Diagnoses:: 1. PAD, s/p extensive stenting of left leg. Continue ASA/plavix for one month then will switch to ASA 81 mg daily/Xarelto 2.5 mg BID. 2. PAD places patient at High risk for CAD, will check echo to assess LVEF and wall motion. 3. Left leg cellulitis, per PCP 4. Macrocytic anemia, check B12 and folate levels. Defer management to PCP. 5. Suspected HLD, start statin in light of PAD. 6. Nothing further to add at this time. Follow up in our office in 1-2 wks.
--- NOTE | 2020-08-25 09:47 | CA_ITS ---
APPROVED REPORT EXAM: Comprehensive 2D, Doppler, and color-flow Echocardiogram Rock Crushing Machine Operator: Tia Ibarra, RT(R) Ht: 5 ft 10 in Wt: 102lbs BSA: 1.57 BP: 105/65 mmHg Indications: PAD, pneumonia, anemia, smoker, edema, assess for CAD, recent extensive stenting of LLE. 2D Dimensions LVOT 2.03 cm (M/F) 1.5-2.5 M-Mode Dimensions RVDd 3.22 cm (0.9-2.6) LA Diam 3.19 cm (1.9-4.0) LVDd 4.02 cm (3.5-5.7) Ao Diam 3.11 cm (2.0-3.7) LVDs 3.13 cm (3.5-5.7) IVSd 0.64 cm (0.6-1.1) PWd 0.68 cm (0.6-1.1) EF (Teich) 45.20% FS 22.10% EDV (Teich) 70.80 mL ESV (Teich) 38.80 mL LV Diastology E Decel Time 150.00 (160-240 msec) E/A Ratio 0.8 MED E' 12.00 (< 7 cm/sec) E'/MED E' Ratio 5.72 (>14) LAT E' 10.90 (<10 cm/sec) E/LAT E' Ratio 6.29 (>14) Mitral Valve MV E Max Kenneth. 69.00 (40-130 cm/s) MV A Velocity 83.00 (40-130 cm/s) E/A Ratio 0.83 MV Decel. Time 150.00 (160-240 ms) MV PHT 44.00 ms Tricuspid Valve TR P. Velocity 282.00 cm/s RAP Estimate 10.00 mmHg RVSP 41.70 mmHg Left Ventricle Left atrium is mildly enlarged, left ventricle is normal size, mild concentric left ventricular hypertrophy, visually estimated ejection fraction 55% with no regional wall motion abnormality, grade 1 diastolic dysfunction seen without tissue Doppler evidence of raise left atrial pressure. Right Ventricle Right atrium and right ventricle are normal size and contractility. Aortic Valve Aortic valve is thickened and calcified without Doppler evidence of aortic stenosis or aortic insufficiency. Mitral Valve Mitral valve grossly normal, there is trace mitral regurgitation. Tricuspid Valve Tricuspid grossly normal, there is trace tricuspid regurgitation, tricuspid regurgitation jet velocity is inadequate for calculation of the right ventricular systolic pressure. Pulmonic Valve Pulmonic valve is poorly visualized. Great Vessels Aortic root is normal size. Pericardium No significant pericardial effusion noted. Conclusion 1. Mildly enlarged left atrium, normal left ventricular size, visually estimated ejection fraction 55% with no regional wall motion abnormality, grade 1 diastolic dysfunction seen without tissue Doppler evidence of raise left atrial pressure. 2. Trace mitral and tricuspid regurgitation. 3. No significant pericardial effusion noted. Electronically signed by : Davie Thompson, 08/25/2020 13:32:50
--- NOTE | 2020-08-25 10:00 | HMH.ORTHPN ---
Subjective Date: 08/25/20 <Lamar Nation - 08/25/20 10:01> Time: 08:15 <Lamar Nation - 08/25/20 10:01> Principal diagnosis: Left leg cellulits <Lamar Nation - 08/25/20 10:01> Interval history: Patient resting in bed this morning with no acute complaints of pain to lower extremity. Patient is doing well very well this morning status post his cardiac runoff and stenting of the left leg. The edema has improved some and there still remains a lot of erythema to the lower leg and foot as well. There is no active drainage noted to the leg this morning. <Lamar Nation - 08/25/20 13:16> PN: Obj Ex Vital signs: Temp Pulse Resp BP Pulse Ox 97.5 F L 79 18 125/54 L 92 L 08/25/20 11:20 08/25/20 11:20 08/25/20 11:20 08/25/20 11:20 08/25/20 11:20 <Didi Waldrop - 08/25/20 13:21> Temp Pulse Resp BP Pulse Ox 98.2 F 93 H 17 116/51 L 92 L 08/25/20 07:28 08/25/20 07:28 08/25/20 07:28 08/25/20 07:28 08/25/20 07:28 <Lamar Nation - 08/25/20 10:01> - Constitutional no acute distress <Lamar Nation Jose - 08/25/20 13:16> - Routine HEENT Exam Head: Present: normocephalic <Lamar Nation - 08/25/20 13:16> Eye: Present: EOMI <Lamar Nation Jose - 08/25/20 13:16> ENT: Present: mucous membranes moist <Lamar Nation Jose - 08/25/20 13:16> - Routine Neck Exam Present: trachea midline <ChapisLamar Jose - 08/25/20 13:16> - Routine Respiratory Exam Absent: accessory muscle use, respiratory distress <TimursheaLamar Jose - 08/25/20 13:16> - Routine Cardiovascular Exam Present: RRR <Lamar Nation - 08/25/20 13:16> - Routine Abdominal Exam Absent: obese <Lamar Nation 08/25/20 13:16> - Routine Extremities Exam Present: edema (Edema has improved to lower leg and foot, erythema is less this morning as well.), normal capillary refill, 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 Absent: pulses intact <Lamar Nation 08/25/20 13:16> - Detailed Lower Extremity Exam Leg image: 1 - Left leg cellulits noted. Leg and foot has erythema and sloughing skin noted,skin is improving some. Edema is less, erythema remains. Left dorsal foot and lateral ankle has patchy places of irritated skin from the edema. Skin is tender to touch. No active drainge to culture. Legs cleaned again with Hibbiclens and dressed with vaseline gauze to dorsal foot and lateral ankle. Nails x 10 was trimmed this visit, yellow and thickened. 2 - Right lower leg very dry and flaky skin noted. Edema improving. Patient starting to get and irritated place on the medial side of leg from friction from rubbing legs together while in bed. No drainage noted. Area cleaned with hibbiclens, DSD was applied to keep the skin from touching.No palpable pedal pulses DP/PT were noted to either foot. Patient is S/P runoff yesterday with stent placement. <Lamar Nation - 08/25/20 13:16> - Routine Skin Exam Present: erythema, dry, cracked <Lamar Nation 08/25/20 13:16> - Routine Neurological Exam Present: alert, moving all extremities, normal tone, vision grossly intact. Absent: hearing grossly intact (Hard of hearing ) <Lamar Nation 08/25/20 13:16> - Routine Psychiatric Exam Present: normal affect, cooperative <Lamar Nation 08/25/20 13:16> Progress Note: A&P (1) Abnormal ankle brachial index (ELADIA) Status: Acute (2) PAD (peripheral artery disease) Status: Acute (3) Decreased pedal pulses Status: Acute (4) Left lower lobe pneumonia Status: Acute (5) Frequent falls Status: Acute (6) Cellulitis Status: Acute (7) Onychogryposis of toenail Status: Acute (8) Onychomycosis Status: Acute (9) Pain due to onychomycosis of nail Status: Acute (10) Edema of lower extremity Status: Acute (11) Other specified symptoms and signs involving the circulatory and respiratory s
[2020-08-25 10:01] LABS: Chol/HDL Ratio 2.4 (1-3.5); Cholesterol 104 mg/dl (140-200); HDL Cholesterol 43 mg/dl (40-60); Triglycerides 53 mg/dl (30-150); VLDL Cholesterol 11 mg/dL (0-40)
[2020-08-25 10:12] LABS: Direct LDL Cholesterol 46.31 mg/dL (100-129)
--- NOTE | 2020-08-25 11:09 | SW/DCPLANNER ---
Addendum entered by Veda Lange 08/28/20 12:57: PATIENT REMAINS IN THE ACUTE HOSPITAL SINCE HE DIDN'T DISCHARGE OVER THE WEEKEND... FURTHER TESTING IS NEEDED BEFORE PATIENT IS MEDICALLY READY FOR A DISCHARGE... Original Note: CALLED [facility] TO INFORM THEM THAT PATIENT WOULD BE COMING THERE FOR AN ADMISSION IF PATIENT HAS NO SETBACKS TMRW..(SAT) I HAVE ALSO LET HIS NURSE KNOW THAT IF THE DAUGHTER COMES IN TODAY TO LET HER KNOW PENDING NOTHING CHANGES HE ADMIT TO THE [facility] SKILLED UNDER HIS MEDICARE BENEFIT...
[2020-08-25 11:23] LABS: Folate 5.28 ng/mL; Vitamin B12 > 1000 pg/mL (239-931)
--- NOTE | 2020-08-25 14:41 | PC.NURSE ---
HE HAS BEEN UP TO CHAIR FOR MOST OF SHIFT, ABLE TO ANSWER MOT QUESTIONS AND FOLLOW COMMANDS, TOLERATING PO INTAKE AND PO MEDS. VSS T/O SHIFT, ABD IS SOFT AND NON-TENDER, CATH SITE IS C/D/I. PT DENIES PAIN.
--- NOTE | 2020-08-25 17:29 | PC.NURSE ---
DR GALINDO CONTACTED R/T PT HR SUSTAINING IN 130'S. INCREASE FLUID RATE TO 125 ML/HR
[2020-08-26] VITALS (11 sets, daily range): BP systolic 107–144; BP diastolic 41–93; PULSE 78–130; RESP 17–20; TEMP 36.4–36.8; O2SAT 80–96; BMI 15.1
--- NOTE | 2020-08-26 04:26 | PC.NURSE ---
hift summary pt is alert and oriented but still gets confused at times. pts lung sounds are diminished with sats maintained 95% or above on room air. pts BP has maintained stable. rt groin cath site has remained cdi. pt has rested comfortably this shift with no complaints. pt has been tachycardic this shift ranging from 98-130. no acute changes will continue to monitor.
--- NOTE | 2020-08-26 07:19 | ECG_ITS ---
APPROVED REPORT Exam: Resting ECG HR:132 bpm ECG Measurements Heart Rate 132 AXES AK 122 P 76 QRSd 72 QRS 4 QT 276 T 106 QTc [address] & T wave abnormality, consider anterior ischemia Abnormal ECG Electronically signed by : Nehemiah Jc, 08/27/2020 08:36:44
[2020-08-26 07:49] LABS: Basophils % 0.2 % (0.1-2.0); Eosinophils % 0.2 % (0.1-12.0); Hematocrit 28.6 % (42.0-52.0); Lymphocytes % 7.2 % (10-50); Mean Corpuscular HGB Conc 31.3 g/dL (31.8-35.4); Mean Corpuscular Volume 102.2 fl (80-94); Mean Platelet Volume 8.5 fl (7.4-10.4); Monocytes # 0.7 K/mm3 (0.1-1.0); Monocytes % 4.9 % (1.7-9.3); Neutrophils # 12.7 K/mm3 (1.8-7.8); Neutrophils % 87.6 % (37.0-80.0); Platelet Count 221 K/mm3 (142-424); Red Blood Count 2.79 M/mm3 (4.60-6.20); Red Cell Distribution Width 13.6 % (11.5-17.5); White Blood Count 14.5 K/mm3 (4.8-10.8)
[2020-08-26 07:51] LABS: MANUAL DIFFERENTIAL MANUAL DIFFERENTIAL (MANUAL DIFF)
[2020-08-26 07:58] LABS: Anisocytosis 1+; Eosinophils % 2 % (0-3); Lymphocytes % 10 % (10-50); Macrocytosis 1+; Monocytes % 5 % (2-9); Neutrophils % 83 % (42-76); Platelet Estimate Normal; Total Cells Counted 100
--- NOTE | 2020-08-26 07:59 | PC.NURSE ---
PAGED DR GALINDO AT 0754 R/T TO PT HR AND O2 SAT. AWAITING CALL BACK
--- NOTE | 2020-08-26 08:02 | XR_ITS ---
PROCEDURE INFORMATION: Exam: XR Chest Exam date and time: 08/26/2020 8:02 AM Age: 85 years old Clinical indication: Shortness of breath and other: Low 02 sat; Additional info: Respiratory rate/o2 sat TECHNIQUE: Imaging protocol: XR of the chest. Views: 1 view. COMPARISON: CR XR CHEST PORTABLE 08/23/2020 12:55 PM FINDINGS: Lungs: COPD. There are worsening perihilar and basilar infiltrates (right greater than left). Pleural spaces: There is a small left pleural effusion blunting the costophrenic angle which appears slightly more conspicuous as well. No pneumothorax is seen. Heart/Mediastinum: The cardiac silhouette does not appear enlarged. Bones/joints: The bones are demineralized with a bony grossly arising from the proximal right humerus consistent with an osteochondroma. IMPRESSION: COPD with worsening perihilar and basilar infiltrates and small left pleural effusion..
--- NOTE | 2020-08-26 08:04 | PC.NURSE ---
SPOKE WITH DR GALINDO. PORTABLE CHEST XRAY ORDERED. 2LNC APPLIED.
[2020-08-26 08:11] LABS: Anion Gap 13.4 mEq/L (5-15); Blood Urea Nitrogen 18 mg/dl (9-20); Calcium 7.4 mg/dl (8.4-10.2); Carbon Dioxide 23 mmol/L (22.0-30.0); Chloride 108 mmol/L (98-107); Creatinine Clearance Estimated 33 mL/min (50-200); Estimated Glomerular Filt Rate 64 ml/min (>60); GFR (African American) 77 ML/MIN (>60); Glucose 125 mg/dl (74-100); Potassium 3.4 mmoL/L (3.5-5.1); Sodium 141 mmol/L (136-145)
--- NOTE | 2020-08-26 09:11 | HMH.ACPN2 ---
Internal Medicine - PN: Subj *Date: 08/26/20 *Time: 09:11 Interval history: He was without oxygen most of yesterday but developed tachycardia last night. Oxygen has been reinstituted overnight. He is clinically stable right now but he had dropped his oxygen saturations without oxygen. He is on 2 L of nasal O2. He is in no acute distress. His feet are warm. He is moving air well. Chest x-ray shows worsening of pleural infiltrates and effusion: COPD with worsening perihilar and basilar infiltrates and small left pleural effusion.. Exam Vital signs and Labs for Last 24 Hours: Temp Pulse Resp BP Pulse Ox 98.2 F 120 H 20 144/93 H 88 L 08/26/20 07:11 08/26/20 07:11 08/26/20 07:11 08/26/20 07:11 08/26/20 07:11 Laboratory Results - last 24 hr 08/25/20 07:51: Triglycerides 53, Cholesterol 104 L, LDL Cholesterol Direct 46.31 L, VLDL Cholesterol 11, HDL Cholesterol 43, Cholesterol/HDL Ratio 2.4 08/25/20 07:51: Vitamin B12 > 1000 H, Folate 5.28 08/26/20 07:40: WBC 14.5 H D, RBC 2.79 L, Hgb 9.0 L, Hct 28.6 L, MCV 102.2 H, MCH 32.0 H, MCHC 31.3 L, RDW 13.6, Plt Count 221, MPV 8.5, Neut % (Auto) 87.6 H, Lymph % (Auto) 7.2 L, [place] % (Auto) 4.9, Eos % (Auto) 0.2, Baso % (Auto) 0.2, Neut # (Auto) 12.7 H, Lymph # (Auto) 1.0, [place] # (Auto) 0.7, Eos # (Auto) 0.0, Baso # (Auto) 0.0, Total Counted 100, Neutrophils % (Manual) 83 H, Lymphocytes % (Manual) 10, Monocytes % (Manual) 5, Eosinophils % (Manual) 2, Platelet Estimate Normal, Anisocytosis 1+, Macrocytosis 1+ 08/26/20 07:40: Sodium 141, Potassium 3.4 L, Chloride 108 H, Carbon Dioxide 23, Anion Gap 13.4, BUN 18, Creatinine 1.10, Estimated Creat Clear 33, Estimated GFR 64, Est GFR ( Amer) 77, Glucose 125 H, Calcium 7.4 L I & O for Last 24 hours: Intake & Output 08/23/20 08/24/20 08/25/20 08/26/20 11:59 11:59 11:59 11:59 Intake Total 360 / 360 800 / 800 1080 / 1080 Output Total 100 / 100 100 / 100 Balance 260 / 260 700 / 700 1080 / 1080 Weight 97 lb 9 oz 102 lb 4 oz 106 lb Microbiology Reports for the Last 24 Hours: Microbiology 08/23/20 13:14 Blood Blood Culture - Preliminary NO GROWTH AFTER 48 HOURS 08/23/20 13:14 Blood Blood Culture - Preliminary NO GROWTH AFTER 48 HOURS - Constitutional no acute distress (With nasal O2 in place) - *Routine HEENT Exam Head: Present: normocephalic Eye: Present: PERRL ENT: Present: mucous membranes moist - *Routine Respiratory Exam Present: rales (Some bibasilar rales but moving air). Absent: respiratory distress - *Routine Cardiovascular Exam Present: RRR - *Routine Abdominal Exam Absent: tenderness - *Routine Extremities Exam Absent: edema Assessment and Plan (1) Abnormal ankle brachial index (ELADIA) Status: Acute Category: Medical Code(s): R68.89 - Other general symptoms and signs (2) PAD (peripheral artery disease) Status: Acute Category: Medical Code(s): I73.9 - Peripheral vascular disease, unspecified (3) Decreased pedal pulses Start date: 08/23/20 Status: Acute Category: Medical Code(s): R09.89 - Other specified symptoms and signs involving the circulatory and respiratory systems (4) Left lower lobe pneumonia Status: Acute Category: Medical Code(s): J18.9 - Pneumonia, unspecified organism (5) Frequent falls Status: Acute Category: Medical Code(s): R29.6 - Repeated falls (6) Cellulitis Status: Acute Category: Medical Code(s): L03.90 - Cellulitis, unspecified (7) Onychogryposis of toenail Start date: 08/23/20 Status: Acute Category: Medical Code(s): L60.2 - Onychogryphosis (8) Onychomycosis Start date: 08/23/20 Status: Acute Category: Medical Code(s): B35.1 - Tinea unguium (9) Pain due to onychomycosis of nail Start date: 08/23/20 Status: Acute Category: Medical Code(s): B35.1 - Tinea unguium; M79.609 - Pain in unspecified limb (10) Edema
--- NOTE | 2020-08-26 13:45 | ECG_ITS ---
APPROVED REPORT Exam: Resting ECG HR:98 bpm ECG Measurements Heart Rate 98 AXES MI 138 P 45 QRSd 76 QRS -5 QT 364 T 16 QTc 464 Conclusion Normal sinus rhythm Nonspecific ST and T wave abnormality Prolonged QT Abnormal ECG Electronically signed by : Nehemiah Jc, 08/27/2020 08:35:31
--- NOTE | 2020-08-26 15:30 | PC.NURSE ---
PT IS MORE AO THIS SHIFT. HE IS ABLE TO MAKE NEEDS KNOWN TO STAFF AND FOLLOW COMMANDS, PT O2 REQUIREMENT HAS INCREASED TO 2LNC RELATED TO DESATS THIS MORNING. PT ALSO STATED THAT HE HAD BEEN HAVING BREATHING DIFFICULTIES. PT DIET ALSO CHANGED THIS AFTERNOON AFTER THIS RN WITNESSED PT HAVING DIFFICULTY SWALLOWING. PT WAS TACHYCARDIC THIS AM BUT HAS SINCE RESOLVED AFTER ADMIN OF METOPROLOL. SINUS TACH WITH HR 102-105 NOTED ON TELE. DSG CHANGED PER ORDERS. NO NEEDS AT THIS TIME.
--- NOTE | 2020-08-26 20:03 | PC.NURSE ---
INCREASED PT TO 4L N/C. PT SATS WAS 80% ON 2L N/C
[2020-08-27] VITALS (13 sets, daily range): BP systolic 96–141; BP diastolic 50–91; PULSE 79–100; RESP 18–24; TEMP 36.1–36.8; O2SAT 91–100; BMI 16.0
--- NOTE | 2020-08-27 03:41 | PC.NURSE ---
Patient has been pleasant this shift. He is alert and oriented. He has been incontinent this shift. At the beginning of shift RT reported that the patient had taken his oxygen off and was in the 70s in oxygen saturation. RT reported that they reapplied the oxygen and put him on 4L NC. He has course crackles in his lower lobes and is diminished throughout. Patient has repeatedly taken off his oxygen throughout the night. He is currently on 2L NC at 0345. His hands stay so cold that an accurate O2 saturation is hard to turkey picker. We where able to get a RA of 92 a couple hours after being on 3-4L NC via ear lobe. There are bilateral lower extremity dressings that are clean, dry and intact. There is a darker spot noted on his left big toe. There is also a stage 1 pressure sore on his buttocks and a dressing was applied to the area to prevent further breakdown. Patient does turn himself in the bed. A new IV site was obtained due to the other site leaking. There is a 20 in his right wrist with NS @ 75 per MAR. Will continue to monitor. Call light within reach, bed alarm on and bed in lowest position.
[2020-08-27 06:17] LABS: Basophils % 0.1 % (0.1-2.0); Eosinophils % 0.2 % (0.1-12.0); Hematocrit 31.4 % (42.0-52.0); Hemoglobin 9.9 g/dL (14.1-18.0); Lymphocytes # 1.9 K/mm3 (0.7-4.5); Lymphocytes % 12.3 % (10-50); Mean Corpuscular HGB Conc 31.5 g/dL (31.8-35.4); Mean Corpuscular Volume 101.5 fl (80-94); Mean Platelet Volume 8.3 fl (7.4-10.4); Monocytes # 0.8 K/mm3 (0.1-1.0); Monocytes % 5.1 % (1.7-9.3); Neutrophils % 82.4 % (37.0-80.0); Platelet Count 167 K/mm3 (142-424); Red Blood Count 3.09 M/mm3 (4.60-6.20); Red Cell Distribution Width 13.5 % (11.5-17.5); White Blood Count 15.8 K/mm3 (4.8-10.8)
[2020-08-27 06:18] LABS: MANUAL DIFFERENTIAL MANUAL DIFFERENTIAL (MANUAL DIFF)
[2020-08-27 06:27] LABS: Anion Gap 15.4 mEq/L (5-15); Blood Urea Nitrogen 28 mg/dl (9-20); Carbon Dioxide 19 mmol/L (22.0-30.0); Chloride 108 mmol/L (98-107); Creatinine Clearance Estimated 30 mL/min (50-200); Estimated Glomerular Filt Rate 52 ml/min (>60); GFR (African American) 63 ML/MIN (>60); Glucose 80 mg/dl (74-100); Potassium 4.4 mmoL/L (3.5-5.1); Sodium 138 mmol/L (136-145)
[2020-08-27 06:29] LABS: Lymphocytes % 7 % (10-50); Monocytes % 1 % (2-9); Neutrophils % 92 % (42-76); Platelet Estimate Normal; RBC Morphology Normal; Total Cells Counted 100
--- NOTE | 2020-08-27 08:18 | HMH.PHACONS ---
- Pharmacy Consult Date: 08/27/20 Time: 08:18 Referring provider: DR. GALINDO Reason for Consult:: VANCOMYCIN DOSING Allergies and ADEs:: Allergies Allergy/AdvReac Type Severity Reaction Status Date / Time iodine Allergy Verified 08/23/20 12:23 Home Medications:: Home Medications Medication Instructions Recorded Confirmed Type No Known Home Medications 08/23/20 08/23/20 History Height: 1.78 m Weight: 50.859 kg Laboratory Results:: Laboratory Results - last 24 hr 08/27/20 06:10: WBC 15.8 H, RBC 3.09 L, Hgb 9.9 L, Hct 31.4 L, MCV 101.5 H, MCH 32.0 H, MCHC 31.5 L, RDW 13.5, Plt Count 167, MPV 8.3, Neut % (Auto) 82.4 H, Lymph % (Auto) 12.3, [place] % (Auto) 5.1, Eos % (Auto) 0.2, Baso % (Auto) 0.1, Neut # (Auto) 13.0 H, Lymph # (Auto) 1.9, [place] # (Auto) 0.8, Eos # (Auto) 0.0, Baso # (Auto) 0.0, Total Counted 100, Neutrophils % (Manual) 92 H, Lymphocytes % (Manual) 7 L, Monocytes % (Manual) 1 L, Platelet Estimate Normal, RBC Morphology Normal 08/27/20 06:10: Sodium 138, Potassium 4.4 D, Chloride 108 H, Carbon Dioxide 19 L, Anion Gap 15.4 H, BUN 28 H D, Creatinine 1.30 H, Estimated Creat Clear 30, Estimated GFR 52 L, Est GFR ( Amer) 63, Glucose 80 D, Calcium 8.0 L Medical History: Reports:: Kidney Stones, Peripheral Artery Disease Denies:: Cancer, Coronary Artery Disease, Diabetes Mellitus Type 1, Diabetes Mellitus Type 2, Gastroesophageal Reflux Disease(GERD), Hyperlipidemia, Hypertension, Internal Pacemaker, MRSA Assessment and Plan (1) Abnormal ankle brachial index (ELADIA) Status: Acute Category: Medical Code(s): R68.89 - Other general symptoms and signs (2) PAD (peripheral artery disease) Status: Acute Category: Medical Code(s): I73.9 - Peripheral vascular disease, unspecified (3) Decreased pedal pulses Start date: 08/23/20 Status: Acute Category: Medical Code(s): R09.89 - Other specified symptoms and signs involving the circulatory and respiratory systems (4) Left lower lobe pneumonia Status: Acute Category: Medical Code(s): J18.9 - Pneumonia, unspecified organism (5) Frequent falls Status: Acute Category: Medical Code(s): R29.6 - Repeated falls (6) Cellulitis Status: Acute Category: Medical Code(s): L03.90 - Cellulitis, unspecified (7) Onychogryposis of toenail Start date: 08/23/20 Status: Acute Category: Medical Code(s): L60.2 - Onychogryphosis (8) Onychomycosis Start date: 08/23/20 Status: Acute Category: Medical Code(s): B35.1 - Tinea unguium (9) Pain due to onychomycosis of nail Start date: 08/23/20 Status: Acute Category: Medical Code(s): B35.1 - Tinea unguium; M79.609 - Pain in unspecified limb (10) Edema of lower extremity Start date: 08/23/20 Status: Acute Category: Medical Code(s): R60.0 - Localized edema (11) Other specified symptoms and signs involving the circulatory and respiratory systems Start date: 08/23/20 Status: Acute Category: Medical Code(s): R09.89 - Other specified symptoms and signs involving the circulatory and respiratory systems (12) Anemia Status: Acute Category: Medical Code(s): D64.9 - Anemia, unspecified (13) Pleural effusion Status: Acute Category: Medical Code(s): J90 - Pleural effusion, not elsewhere classified - Assessment and plan all Dx Assessment and Plan for all problems:: Pharmacokinetic dosing service Age: 85 yo Serum creatinine: 1.3 mg/dL Height: 70.1 Inches Weight (kg): 50.9 Assessment: IBW (kg): 73.23 Dosing wt(kg): 50.9 Estimated Creatinine clearance (ml/min): 29.9 CRCL method: Cockcroft and Gault using ibw(default). Drug selected: Vancomycin Loading dose (mg): 0 Vd (liters): 40.7 (factor used: 0.8 L/kg) Jax (hr-1): 0.029 Half life (hrs): 23.90 Recommended dose: 1000 mg Interval: 36 hrs Infusion time (hrs): 2.0 Predicted peak (mcg/mL): 36.8 Predicted t
--- NOTE | 2020-08-27 09:44 | PC.NURSE ---
Order faxed to pharmacy for 20mg IV lasix once, VO from Dr Boss, read back and verified.
--- NOTE | 2020-08-27 12:29 | PC.NURSE ---
PT FAILED BEDSIDE SWALLOW EVAL. BJORN REMOVED FROM PT ROOM. NPO STATUS ORDERED. DR GALINDO CONTACTED. NEW ORDERS. D5 1/2 NS @100 ML/HR SPEECH EVAL MODIFIED BARIUM SWALLOW
--- NOTE | 2020-08-27 14:14 | HMH.ACPN2 ---
Internal Medicine - PN: Subj *Date: 08/27/20 *Time: 14:14 Interval history: Nursing has reported increased difficulties with swallowing and choking. We have placed him n.p.o. IV fluids have been changed to D5 one half normal saline at 75 cc an hour. He was found to be a little edematous this morning and I ordered Lasix 20 mg IV 1 time. Exam Vital signs and Labs for Last 24 Hours: Temp Pulse Resp BP Pulse Ox 98.2 F 80 18 141/77 H 95 08/27/20 11:08 08/27/20 14:00 08/27/20 11:08 08/27/20 11:08 08/27/20 14:00 Laboratory Results - last 24 hr 08/27/20 06:10: WBC 15.8 H, RBC 3.09 L, Hgb 9.9 L, Hct 31.4 L, MCV 101.5 H, MCH 32.0 H, MCHC 31.5 L, RDW 13.5, Plt Count 167, MPV 8.3, Neut % (Auto) 82.4 H, Lymph % (Auto) 12.3, Jewell % (Auto) 5.1, Eos % (Auto) 0.2, Baso % (Auto) 0.1, Neut # (Auto) 13.0 H, Lymph # (Auto) 1.9, Jewell # (Auto) 0.8, Eos # (Auto) 0.0, Baso # (Auto) 0.0, Total Counted 100, Neutrophils % (Manual) 92 H, Lymphocytes % (Manual) 7 L, Monocytes % (Manual) 1 L, Platelet Estimate Normal, RBC Morphology Normal 08/27/20 06:10: Sodium 138, Potassium 4.4 D, Chloride 108 H, Carbon Dioxide 19 L, Anion Gap 15.4 H, BUN 28 H D, Creatinine 1.30 H, Estimated Creat Clear 30, Estimated GFR 52 L, Est GFR ( Amer) 63, Glucose 80 D, Calcium 8.0 L I & O for Last 24 hours: Intake & Output 08/25/20 08/26/20 08/27/20 08/28/20 11:59 11:59 11:59 11:59 Intake Total 800 / 800 1080 / 1080 1236 / 1236 Output Total 100 / 100 25 / 25 Balance 700 / 700 1080 / 1080 1211 / 1211 Weight 102 lb 4 oz 106 lb 112 lb 2 oz - Constitutional no acute distress - *Routine HEENT Exam Head: Present: normocephalic Eye: Present: PERRL ENT: Present: mucous membranes moist - *Routine Neck Exam Present: JVD (Mild) - *Routine Respiratory Exam Present: rales (Bibasilar, moving air well.). Absent: respiratory distress - *Routine Cardiovascular Exam Present: RRR - *Routine Abdominal Exam Present: soft. Absent: mass - *Routine Extremities Exam Present: edema (2+. Circulation intact.) Assessment and Plan (1) Abnormal ankle brachial index (ELADAI) Status: Acute Category: Medical Code(s): R68.89 - Other general symptoms and signs (2) PAD (peripheral artery disease) Status: Acute Category: Medical Code(s): I73.9 - Peripheral vascular disease, unspecified (3) Decreased pedal pulses Start date: 08/23/20 Status: Acute Category: Medical Code(s): R09.89 - Other specified symptoms and signs involving the circulatory and respiratory systems (4) Left lower lobe pneumonia Status: Acute Category: Medical Code(s): J18.9 - Pneumonia, unspecified organism (5) Frequent falls Status: Acute Category: Medical Code(s): R29.6 - Repeated falls (6) Cellulitis Status: Acute Category: Medical Code(s): L03.90 - Cellulitis, unspecified (7) Onychogryposis of toenail Start date: 08/23/20 Status: Acute Category: Medical Code(s): L60.2 - Onychogryphosis (8) Onychomycosis Start date: 08/23/20 Status: Acute Category: Medical Code(s): B35.1 - Tinea unguium (9) Pain due to onychomycosis of nail Start date: 08/23/20 Status: Acute Category: Medical Code(s): B35.1 - Tinea unguium; M79.609 - Pain in unspecified limb (10) Edema of lower extremity Start date: 08/23/20 Status: Acute Category: Medical Code(s): R60.0 - Localized edema (11) Other specified symptoms and signs involving the circulatory and respiratory systems Start date: 08/23/20 Status: Acute Category: Medical Code(s): R09.89 - Other specified symptoms and signs involving the circulatory and respiratory systems (12) Anemia Status: Acute Category: Medical Code(s): D64.9 - Anemia, unspecified (13) Pleural effusion Status: Acute Category: Medical Code(s): J90 - Pleural effusion, not elsewhere classified (14) Dysphagia Status: Acute Category: Medical Code(s): R13.10 - Dyspha
--- NOTE | 2020-08-27 14:43 | PC.NURSE ---
HE IS ALERT TO PERSON AND KNOWN THE NAMES OF FAMILY MEMBERS WHO VISIT BUT HAS DISPLAYED EPISODES OF CONFUSION. PT HAS BEEN ABLE TO CALL OUT TO USE URINAL. BRIEF REMAINS IN PLACE R/T BOWEL INCONTINENCE. PT DISPLAYED DIFFICULTY WITH LUNCH AND FAILED BEDSIDE SWALLOW EVAL AND WAS MADE NPO UNTIL SPEECH CONSULT CAN BE COMPLETED. MODIFIED BARIUM SWALLOW ALSO ORDERED. DSG WAS CHANGED PER ORDERS. VSS T/O SHIFT, HE CONTINUES TO TOLERATE ROOM AIR. FLUIDS CHANGED TO D5 1/2 NS PER ORDER.
--- NOTE | 2020-08-27 17:19 | HMH.SLDYSPHA ---
Speech & Language Evaluation Speech/Language Dysphagia Evaluation Start: 08/27/20 16:58 Freq: ONCE Status: Active Protocol: Document 08/27/20 17:10 ISHAN (Rec: 08/27/20 17:19 ISHAN [id number]) Dysphagia Assess/Goals/Plan Assessment Date of Evaluation: 08/27/20 Evaluation Type Initial Certification Assessment/Problems Dysphagia Does Patient Qualify for Service No Qualify/Failure Comment Patient showed no overt s/s of dysphagia. However, NSG believes a MBSS is still recommended. Recommendations PHYSICIAN CERTIFICATION: The specified therapy services are required, authorized, and reviewed every 30 days. Diet Recommendations Mechanical Soft Liquid Type Recommendations Pudding Consistency SL Swallow Guidelines Assist w/all meals,Alt bite w/ sip thru meal,Standard Aspiration Prec. Dysphagia Swallow Precautions/Strategies Sitting Upright (90 deg), Liquids from Spoon,Small Bites and Sips,Alternate Liquids/ Solids Plan Pt/Guardian verbally ack understanding Yes of dx/prognosis/goals G -code Required No STG-Other Comment/Non-Specific A MBSS will be conducted and goals will be determined based on those results. Dressage Instructor Goals Diet Mechanical Soft with Liquids Pudding Thick Speech & Language HPI Language Primary Language [place] General Information General Current Food Consistancy NPO Dentition Upper & Lower Dentures Comment: ill fitting dentures Oxygen Status Room Air Facial Symmetry Symmetrical Patient Orientation Person,Place Ability to Follow Directions Excellent Communication Ability No Impairment Dysphagia:Food Presentation Evaluation Food Type Mechanical Soft,Liquid,Pudding Dysphagia Evaluation Summary Mr. Monterroso was given the following consistencies: nectar via open cup, pudding, and mechanical soft. No overt signs/symptoms of dysphagia were noted. NSG reported a coughing spell that made Mr. Monterroso vomit this afternoon at lunch. Spoke with and a MBSS will be completed to rule out silent aspiration and determine
[2020-08-27 22:14] LABS: Microscopic, Urine URINE MICROSCOPIC (MICROSCOPIC)
[2020-08-27 22:24] LABS: Appearance,Urine CLOUDY (Clear); Bilirubin,Urine Negative (Negative); Blood, Urine 3+ (Negative); Color,Urine DK YELLOW (Yellow); Glucose,Urine (UA) Negative (Negative); Ketones,Urine Negative (Negative); Leukocyte Esterase,Urine 2+ (Negative); Nitrate,Urine Negative (Negative); Protein,Urine TRACE (Negative); Urobilinogen,Urine 0.2 EU/dl (0.2)
[2020-08-27 22:31] LABS: Bacteria,Urine 3+ /lpf; Mucus,Urine 1+ /lpf; RBC,Urine 50-100 #/hpf (0-3); WBC,Urine 50-100 #/hpf (0-3)
[2020-08-28] VITALS (11 sets, daily range): BP systolic 97–121; BP diastolic 40–68; PULSE 69–93; RESP 12–24; TEMP 36.1–37.1; O2SAT 68–100; BMI 16.0
[2020-08-28] LABS: POC Glucose,Bedside 120 (70-110)
--- NOTE | 2020-08-28 05:07 | PC.NURSE ---
Patient is alert and oriented x4. Lung sounds are still crackly in lower lobes. Patient remains on room air and only able to obtain a O2 saturation on patient's forehead. Bilateral lower leg dressings noted to be clean, dry and intact. I did have to reinforce the left medial heal area with Vaseline gauze, 4x4, kerlix and coband per order. During assessment of his abdomen, there was distention noted to his lower abdomen. It was firm to the touch. At 2130 bladder was then scanned and revealed >891 ml. Patient had no complaints of pain when palpated. MD building construction contractor was notified of the amount shown on the bladder scanner, MD was also made aware of scant urine and urgency. Orders received for a samuel to be placed. A 16 Korean coude catheter was placed without any difficulty. 1200 ml of tea colored urine was initially emptied and UA was collected and sent to lab for previous UA culture needed. Patient has rested really well this shift. Vital signs have been stable. Will continue to monitor, bed in lowest position, call light within reach.
--- NOTE | 2020-08-28 07:33 | XR_ITS ---
PROCEDURE: XR CHEST 2V CLINICAL HISTORY: pneumonia COMPARISON: CR XR CHEST PORTABLE from 08/23/2020 CR XR CHEST PORTABLE from 08/26/2020 FINDINGS: The cardiomediastinal silhouette and pulmonary vascularity are within normal limits. Bilateral lower lobe pneumonia once again noted with small bilateral pleural effusions. Fluid is present in the left major fissure. 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 IMPRESSION: Persistent bilateral lower lobe pneumonia not significantly changed with small bilateral effusions Dictated by: Sonny Irizarry MD 08/28/2020 09:55 Sonny Irizarry MD in [facility] 08/28/2020 09:55
--- NOTE | 2020-08-28 07:51 | HMH.ACPN2 ---
Internal Medicine - PN: Subj *Date: 08/28/20 *Time: 07:51 Interval history: Patient denies chest pain and shortness of breath. He denies abdominal discomfort. He mumbles and is difficult to understand. Per nursing: he had a bladder scan last night after receiving Lasix and no urinary output. Positive for large amount of urine. Hayes cath inserted and obtained greater than 1200 mL. Urinalysis was ordered. He is to have a modified barium swallow today. He is not eating or drinking very well. Exam Vital signs and Labs for Last 24 Hours: Temp Pulse Resp BP Pulse Ox 98.1 F 69 12 104/40 L 84 L 08/28/20 04:00 08/28/20 06:09 08/28/20 04:00 08/28/20 04:00 08/28/20 04:00 Laboratory Results - last 24 hr 08/27/20 22:00: Urine Color Dk yellow, Urine Appearance Cloudy, Urine pH 6.0, Ur Specific [place] 1.020, Urine Protein Trace, Urine Glucose (UA) Negative, Urine Ketones Negative, Urine Blood 3+, Urine Nitrate Negative, Urine Bilirubin Negative, Urine Urobilinogen 0.2, Ur Leukocyte Esterase 2+ A, Urine RBC 50-100, Urine WBC 50-100, Urine Bacteria 3+, Urine Mucus 1+ 08/27/20 23:51: POC Glucose 120 H I & O for Last 24 hours: Intake & Output 08/25/20 08/26/20 08/27/20 08/28/20 11:59 11:59 11:59 11:59 Intake Total 800 / 800 1080 / 1080 1236 / 1236 2180 / 2180 Output Total 100 / 100 25 / 25 1700 / 1700 Balance 700 / 700 1080 / 1080 1211 / 1211 480 / 480 Weight 102 lb 4 oz 106 lb 112 lb 2 oz 112 lb 1.998 oz - Constitutional no acute distress, cachectic Comments: Awakened for assessment. Had to be assisted upright to examine chest. He does appear comfortable. - *Routine Respiratory Exam Present: rhonchi Comments: Bilateral rhonchi. Poor inspiratory effort - *Routine Cardiovascular Exam Present: RRR - *Routine Abdominal Exam Present: soft, normoactive bowel sounds. Absent: tenderness - *Routine Extremities Exam Absent: edema Comments: Dressing on lower legs clean and dry - *Routine Neurological Exam Present: alert, moving all extremities Assessment and Plan (1) Abnormal ankle brachial index (ELADIA) Status: Acute Category: Medical Code(s): R68.89 - Other general symptoms and signs (2) PAD (peripheral artery disease) Status: Acute Category: Medical Code(s): I73.9 - Peripheral vascular disease, unspecified (3) Decreased pedal pulses Start date: 08/23/20 Status: Acute Category: Medical Code(s): R09.89 - Other specified symptoms and signs involving the circulatory and respiratory systems (4) Left lower lobe pneumonia Status: Acute Category: Medical Code(s): J18.9 - Pneumonia, unspecified organism (5) Frequent falls Status: Acute Category: Medical Code(s): R29.6 - Repeated falls (6) Cellulitis Status: Acute Category: Medical Code(s): L03.90 - Cellulitis, unspecified (7) Onychogryposis of toenail Start date: 08/23/20 Status: Acute Category: Medical Code(s): L60.2 - Onychogryphosis (8) Onychomycosis Start date: 08/23/20 Status: Acute Category: Medical Code(s): B35.1 - Tinea unguium (9) Pain due to onychomycosis of nail Start date: 08/23/20 Status: Acute Category: Medical Code(s): B35.1 - Tinea unguium; M79.609 - Pain in unspecified limb (10) Edema of lower extremity Start date: 08/23/20 Status: Acute Category: Medical Code(s): R60.0 - Localized edema (11) Other specified symptoms and signs involving the circulatory and respiratory systems Start date: 08/23/20 Status: Acute Category: Medical Code(s): R09.89 - Other specified symptoms and signs involving the circulatory and respiratory systems (12) Anemia Status: Acute Category: Medical Code(s): D64.9 - Anemia, unspecified (13) Pleural effusion Status: Acute Category: Medical Code(s): J90 - Pleural effusion, not elsewhere classified (14) Dysphagia Status: Acute Category: Medical Code(s): R13.10 - Dysphagia, unsp
[2020-08-28 08:10] LABS: Basophils % 0.1 % (0.1-2.0); Eosinophils # 0.2 K/mm3 (0.0-0.4); Eosinophils % 1.3 % (0.1-12.0); Hematocrit 28.8 % (42.0-52.0); Lymphocytes # 1.2 K/mm3 (0.7-4.5); Lymphocytes % 10.1 % (10-50); Mean Corpuscular HGB Conc 31.1 g/dL (31.8-35.4); Mean Corpuscular Hemoglobin 30.9 pg (27.0-31.2); Mean Corpuscular Volume 99.2 fl (80-94); Mean Platelet Volume 7.7 fl (7.4-10.4); Monocytes # 0.7 K/mm3 (0.1-1.0); Monocytes % 6.4 % (1.7-9.3); Neutrophils # 9.4 K/mm3 (1.8-7.8); Neutrophils % 82.1 % (37.0-80.0); Platelet Count 145 K/mm3 (142-424); Red Cell Distribution Width 13.2 % (11.5-17.5); White Blood Count 11.4 K/mm3 (4.8-10.8)
--- NOTE | 2020-08-28 09:32 | FL_ITS ---
PROCEDURE: FL BARIUM SWALLOW MODIFIED CLINICAL INDICATION: Vomiting COMPARISON: No exams were available for comparison TECHNIQUE: Patient administered varying consistencies of barium contrast, while viewed in lateral position under real-time fluoroscopy with cine recording. FLUOROSCOPY TIME:1 minutes and 5 seconds The study was performed in conjunction with speech pathologist. Please see that report & recommendations. FINDINGS: Patient was given varying consistencies of barium. Patient swallowed a small amount of thin liquid and nectar without difficulty.. This study was then discontinued due to patient's feeling of needing to vomit. We then performed a very limited barium swallow with the patient in the right lateral acute is position. There was essentially no peristalsis. The food bolus lingered in the esophagus despite setting the patient in a 45 degree angle. The ventrally the distal esophagus was partially opacified. Please see the barium swallow report IMPRESSION: No aspiration or penetration on this limited exam. Please see speech pathologist report and barium swallow report of the same day Dictated by: Sonny Irizarry MD 08/28/2020 16:24 Sonny Irizarry MD in [facility] 08/28/2020 16:24
--- NOTE | 2020-08-28 09:41 | HMH.ORTHPN ---
Subjective Date: 08/28/20 <Lamar Nation - 08/28/20 09:41> Time: 07:50 <Lamar Nation - 08/28/20 09:41> Principal diagnosis: Left leg cellulits <Lamar Nation - 08/28/20 09:41> Interval history: Patient resting in bed this morning. Did not appear to be in any acute distress. Patient would not open his eyes or respond to me verbally. Patient did respond through actions with me discussing plan of treatment and dressing change this morning. Patient has not been eating or drinking very well over the weekend. The nurse stated he is scheduled for barium swallow test later today. <Lamar Nation - 08/28/20 10:12> PN: Obj Ex Vital signs: Temp Pulse Resp BP Pulse Ox 98.5 F 79 24 106/68 L 91 L 08/28/20 11:38 08/28/20 14:07 08/28/20 11:38 08/28/20 11:38 08/28/20 14:07 <Didi Waldrop - 08/28/20 14:14> Temp Pulse Resp BP Pulse Ox 98.4 F 82 20 121/63 86 L 08/28/20 08:00 08/28/20 08:00 08/28/20 08:00 08/28/20 08:00 08/28/20 08:00 <Lamar Nation - 08/28/20 09:41> - Constitutional no acute distress, cooperative <Lamar Nation - 08/28/20 10:12> - Routine HEENT Exam Head: Present: normocephalic <Lamar Nation - 08/28/20 10:12> - Routine Respiratory Exam Absent: respiratory distress <Lamar Nation - 08/28/20 10:12> - Routine Cardiovascular Exam Present: RRR <Lamar Nation - 08/28/20 10:12> - Routine Abdominal Exam Present: soft <Lamar Nation - 08/28/20 10:12> - Routine Extremities Exam Present: edema (Edema has improved to lower leg and foot, erythema is less this morning as well.), full ROM, normal capillary refill, 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 Absent: pulses intact, calf tenderness <ChapisLamar Jose 08/28/20 10:12> - Detailed Lower Extremity Exam Leg image: 1 - Left leg cellulits noted. Leg and foot has erythema and sloughing skin noted,skin is improving some. Edema is less, erythema remains. Left dorsal foot and lateral ankle has patchy places of irritated skin from the edema. Skin is tender to touch. No active drainge to culture. Legs cleaned again with Hibbiclens and dressed with vaseline gauze to dorsal foot and lateral ankle. 2 - Right lower leg very dry and flaky skin noted. Edema improving. Patient starting to get and irritated place on the medial side of leg from friction from rubbing legs together while in bed. No drainage noted. Area cleaned with hibbiclens, DSD was applied to keep the skin from touching. Still not able to palpate pedal puleses well. Patient is S/P runoff last week with stent placement. <Lamar Nation 08/28/20 10:12> - Routine Skin Exam Present: erythema, dry, warm, cracked <ChapisLamar L 08/28/20 10:12> - Routine Neurological Exam Present: alert (mumbled speach, and barely opens eyes when spoken to.), moving all extremities, hearing grossly intact <Lamar Nation 08/28/20 10:12> - Routine Psychiatric Exam Present: cooperative <Lamar Nation 08/28/20 10:12> - Urinary Catheter Management Coude Cath placed during this visit: no <Didi Waldrop 08/28/20 14:14> no <Lamar Nation 08/28/20 10:12> Hayes Cath placed during this visit: no <Didi Waldrop 08/28/20 14:14> no <Lamar Nation 08/28/20 10:12> Urethral indwelling: Yes <ChapisLamar Jose - 08/28/20 10:12> Progress Note: A&P (1) Abnormal ankle brachial index (ELADIA) Status: Acute (2) PAD (peripheral artery disease) Status: Acute (3) Decreased pedal pulses Status: Acute (4) Left lower lobe pneumonia Status: Acute (5) Frequent falls Status: Acute (6) Cellulitis Status: Acute (7) Onychogryposis of toenail Status: Acute (8) Onychomycosis Status: Acute (9) Pain due to onychomycosis of nail S
--- NOTE | 2020-08-28 10:09 | FL_ITS ---
PROCEDURE: FL BARIUM SWALLOW CLINICAL INDICATION: DIFFICULTY SWALLOWING, vomiting COMPARISON: No exams were available for comparison FINDINGS: Fluoroscopy time: 3 minutes and 5 seconds. Study is very limited as the patient could not stand or be upright for the exam and was unable to swallow a sufficient amount of barium. There was no peristalsis of the esophagus despite intermittent few in for approximately 20 minutes. The esophagus was not dilated. Patient was situated part upright on the table and esophagus was visualized throughout its length. The distal esophagus is not well opacified. Filling defects are present in the distal esophagus. A persistent longitudinal filling defect is noted which could be due to an area of mucosal thickening or retained food products. Mucosal thickening noted at the distal esophagus. There was very poor emptying of the esophagus. 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 Incomplete filling of the esophagus with longitudinal filling defects in the distal esophagus which could be related to mucosal edema and/or retained food products. Upper endoscopy is recommended as distal esophageal neoplasm is not excluded. Obstruction of the esophagus however is not felt to be present. The soft this was not dilated. Dictated by: Sonny Irizarry MD 08/28/2020 11:58 Sonny Irizarry MD in [facility] 08/28/2020 11:58
--- NOTE | 2020-08-28 10:35 | HMH.SLMBS2 ---
Speech & Language Evaluation Speech/Language Mod Barium Swallow Start: 08/27/20 12:30 Freq: ONCE Status: Complete Protocol: Document 08/28/20 10:27 ISHAN (Rec: 08/28/20 10:35 ISHAN [id number]) General Information General Current Food Consistancy Dysphagia Mechanical Soft, Ground Meats,Pudding Liquids Dentition Upper & Lower Dentures Comment: ill fitting Oxygen Status Room Air Facial Symmetry Symmetrical Patient Orientation Person,Place Ability to Follow Directions Excellent Communication Ability No Impairment MBS Recommendations Diet Dietary Recommendations NPO Referrals/Other Recommended Referrals GI Consult Mod Barium Swallow Impressions Summary and Impressions Oral Phase Impression No Impairment (WFL) Oral Phase Summary Mr. Monterroso was given the following consistencies: thins via straw and nectar. No impairments in the oral phase noted. Pharyngeal Phase Impression Minimal Impairment Pharyngeal Phase Summary Minimal residue noted with thin liquids. When patient was given second bolus of nectar thick, he began to vomit boluses previously taken. He begged ST to stop the test and not give him anymore food. ST contacted Dr. Boss to obtain permission to complete an esophagram to rule out stricture or obstruction. Please refer to radiologist's report. Speech/Language MBS Assessment/Goals/Plan Assessment Date of Evaluation: 08/28/20 Evaluation Type Re-Evaluation/Revise POC Assessment/Problems Dysphagia Does Patient Qualify for Service No Qualify/Failure Comment Referring to GI specialist Plan Pt/Guardian verbally ack understanding Yes of dx/prognosis/goals G -code Required No PHYSICIAN CERTIFICATION: I certify the specified therapy services for Emir Monterroso are required, authorized, and reviewed every 30 days.
--- NOTE | 2020-08-28 13:06 | DIET.NUTRFU ---
Addendum entered by Laura Sanchez 09/01/20 15:19: Pt continues to decline significantly. Despite excellent efforts from nursing, he is too weak to tolerate much PO intake. He did eat 50% of 2 meals on 08/30, but has had minimal intake since. Weight has increased 18# t/o stay-9 days. He continues with soft mechanical/regular diet with pudding thickened liquids and TID ensure, protein fortified foods added to order as well. Please continue to encourage/cue prioritizing supplements and fortified foods as these are easiest for pt to tolerate and energy/protein dense. Addendum entered by Laura Sanchez 08/30/20 14:01: Pt has continued with low intakes, was able to eat 50% of lunch today. Please continue encouragement/cueing at mealtimes and supplement offers t/o day. Weight appears to be up 13# in the past 24h, however suspect errors in recorded weights t/o stay and that increase in weight has been more gradual than documented. Continuing to monitor. Original Note: Pt with severe protein calorie malnutrition with loss 10% BW past 3m, decreased PO intake past 6m. CONICAL MIXER saw him and altered diet to soft mechanical ground with pudding thick liquids. He had a MBS today which showed esophageal dysmotility and upper endoscopy recommended. PO intakes 25%. Pt requires assistance feeding, please encourage/cue at meal times. Pt may have any additional supplements/snacks desired or by RN offer. Adaptive equipment and BID supplements of pt's preference on diet order. Pt and family have been provided with diet edu/counseling for malnutrition.
[2020-08-28 16:18] LABS: Vancomycin,Peak 16.4 ug/ml (11-39)
--- NOTE | 2020-08-28 17:37 | PC.NURSE ---
Pt has been pleasant and cooperative this shift. A&O X4. No complaints of pain. Pt is receiving O2 via NC @ 2 LPM with sats. >90%. Lung sounds reveal inspiratory/expiratory rhonchi and crackles. No edema noted. Bilateral butler ulcerations noted and dressings changed per Podiatry. F/C is patent and draining clear, wendy-colored urine at bedside to gravity. No BM today. Pt takes PO medications crushed in applesauce and has had very minimal PO intake. 20 G peripheral IV in the LT forearm is patent and infusing D5W 0.45% NS @ 100 ML/HR. VSS. Call light within reach. Will continue to monitor.
[2020-08-29] VITALS (26 sets, daily range): BP systolic 97–120; BP diastolic 42–75; PULSE 18–90; RESP 16–24; TEMP 36.3–36.9; O2SAT 80–100; BMI 16.0
--- NOTE | 2020-08-29 03:37 | PC.NURSE ---
Patient has been resting fair during the shift. Patient is A&O x4. He has bilateral dressings to his lower extremities that are clean, dry and intact. His urine output has been good, there where some hematuria at the beginning of shift that has since resolve. His lungs are still crackly. He has some slight generalized pitting edema (+1). Will continue to monitor. Call light within reach, bed alarm on and in lowest position.
[2020-08-29 07:07] LABS: Chloride 109 mmol/L (98-107)
[2020-08-29 07:08] LABS: Sodium 138 mmol/L (136-145)
[2020-08-29 07:11] LABS: Anion Gap 6.9 mEq/L (5-15); Blood Urea Nitrogen 22 mg/dl (9-20); Calcium 7.3 mg/dl (8.4-10.2); Carbon Dioxide 25 mmol/L (22.0-30.0); Creatinine Clearance Estimated 39 mL/min (50-200); Estimated Glomerular Filt Rate 80 ml/min (>60); GFR (African American) 97 ML/MIN (>60); Glucose 107 mg/dl (74-100)
[2020-08-29 07:22] LABS: Basophils % 0.2 % (0.1-2.0); Eosinophils # 0.1 K/mm3 (0.0-0.4); Eosinophils % 1.5 % (0.1-12.0); Hemoglobin 8.7 g/dL (14.1-18.0); Lymphocytes # 1.1 K/mm3 (0.7-4.5); Lymphocytes % 13.4 % (10-50); Mean Corpuscular HGB Conc 31.1 g/dL (31.8-35.4); Mean Corpuscular Hemoglobin 31.2 pg (27.0-31.2); Mean Corpuscular Volume 100.3 fl (80-94); Mean Platelet Volume 7.6 fl (7.4-10.4); Monocytes # 0.5 K/mm3 (0.1-1.0); Monocytes % 6.1 % (1.7-9.3); Neutrophils # 6.4 K/mm3 (1.8-7.8); Neutrophils % 78.8 % (37.0-80.0); Platelet Count 144 K/mm3 (142-424); Red Blood Count 2.79 M/mm3 (4.60-6.20); Red Cell Distribution Width 13.1 % (11.5-17.5); White Blood Count 8.2 K/mm3 (4.8-10.8)
[2020-08-29 07:24] LABS: Potassium 2.9 mmoL/L (3.5-5.1)
--- NOTE | 2020-08-29 07:25 | PC.NURSE ---
Jerson Schultz from lab called with a critical potassium 2.9, verified name and x2. Passed on in report to MB. Pereyra for MD notification.
--- NOTE | 2020-08-29 08:11 | HMH.GSCON ---
*Admission Date: 08/23/20 *Reason for consult:: Esophagogastroduodenoscopy *History of present illness: Mr Monterroso is an 85-year-old male patient who has not seen a physician in the last 60 years. He takes no medicines on a regular basis. He has been having difficulty with his left lower leg with pain. He did have a fall in the p.m. of 08/20 and spent the night on the floor. Neighbors did check on him and felt like he was functioning satisfactory. To note much of the history is obtained from his daughter who is present in the emergency room. She states his mental status was fine at that point. Yesterday 08/22 disorientation was noted. He felt like he was talking with his . He continued to complain of left lower leg pain and the erythema was noted. He was brought into the emergency room for evaluation. With evaluation in the emergency room white Blood cell count was 9900 with a hemoglobin of 11.2 and hematocrit of 35.5. Blood chemistries were satisfactory. BUN was 32 and creatinine 1.4. Lactate was 1.8. Chest x-ray showed patchy left lower lobe infiltrate with small effusion. CT of the head was without any acute findings. 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 In the emergency room he was started on Rocephin and then admitted for further evaluation and treatment. Podiatry was consulted to see the patient for his Left lower leg and foot cellulitis and edema with thickended nails. Patient was resting in the bed with his daughter at his bedside. Patient lives alone with his dog and has not had routine checkups by a Doctor in over 30+ years. He does present B/L lower leg edema,erythema to b/l legs and feet. They are tender to touch, skin is parched, I didn't see any active drainage to culture. There was dry scabs flaking off the legs and feet. There is the presence of animal hair on legs and toes. I was not able to palpate DP/PT pedal pulses so he will need ELADIA's tomorrow to check blood flow and circulation status. 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 I was able to clean the legs off with hibbiclens and using nail nippers to debride the nails down. The Left leg and foot was dressed with betadine soaked 4x4 gauze, DSD, kerlex. Patient has had some difficulty swallowing. He underwent modified barium swallow yesterday. This revealed findings of significant dysmotility of the esophagus. Neoplastic process was unable to be ruled out and radiology recommended consideration of upper endoscopy. Therefore surgical consultation was ordered by primary care physician. Review of Systems - Review of Systems Review of systems:: unable to obtain - *Neurologic Reports abnormal walking (reports frequent falls ), Reports abnormal hearing ([place]), Reports confusion, Reports frequent falls, Denies seizure-like activity, Denies unsteadiness, Denies headache(s), Denies fainting [facility] History I have reviewed the patient's past medical history: Yes Medical History: Reports:: Kidney Stones, Peripheral Artery Disease Denies:: Cancer, Coronary Artery Disease, Diabetes Mellitus Type 1, Diabetes Mellitus Type 2, Gastroesophageal Reflux Disease(GERD), Hyperlipidemia, Hypertension, Internal Pacemaker, MRSA *Have you ever received a pneumonia vaccine?: No *Have you received a flu vaccine this season?: No (Became ill when given vaccine in 1950s.) Other Surgeries: No: Pacemaker Amputation: No Fractures: No - *Social History Smoking Status: Current every day smoker Tobacco Type: cigarettes # Packs/Day (cigarettes): 1 Alcohol Intake: never Alcohol Intake Frequency:: holidays/special occasions only *Occupational Status:: retired Housing: house Household Members: none *Travel in the last 8 weeks: None Family Hx:: Cancer, Diabetes Meds Home Medications Medication Instructions Recorde
--- NOTE | 2020-08-29 08:12 | HMH.ORTHPN ---
Subjective Date: 08/29/20 <Lamar Nation - 08/29/20 08:29> Time: 08:12 <Lamar Nation - 08/29/20 08:29> Principal diagnosis: Left leg cellulits <Lamar Nation - 08/29/20 08:29> Interval history: Patient sitting up in chair this morning seems to be a little more alert and with himself. It has been n.p.o. for upper scope procedure today. We will proceed with dressing changes. Patient denies any pain to lower extremities. Patient denies nausea, fever, diarrhea, shortness of breath. <Lamar Nation - 08/29/20 08:29> PN: Obj Ex Vital signs: Temp Pulse Resp BP Pulse Ox 97.9 F 70 16 103/75 L 96 08/29/20 12:55 08/29/20 13:38 08/29/20 13:25 08/29/20 13:25 08/29/20 13:25 <Dimitrios Waldropie - 08/29/20 13:46> Temp Pulse Resp BP Pulse Ox 98.2 F 68 16 97/42 L 94 L 08/29/20 04:00 08/29/20 05:39 08/29/20 04:00 08/29/20 04:00 08/29/20 06:38 <Lamar Nation - 08/29/20 08:29> - Constitutional no acute distress <Lamar Nation - 08/29/20 08:29> - Routine HEENT Exam Head: Present: normocephalic <Lamar Nation - 08/29/20 08:29> Eye: Present: EOMI <Lamar Nation - 08/29/20 08:29> ENT: Present: mucous membranes moist <Lamar Nation - 08/29/20 08:29> - Routine Neck Exam Present: trachea midline <Lamar Nation - 08/29/20 08:29> - Routine Respiratory Exam Absent: respiratory distress <Lamar Nation - 08/29/20 08:29> - Routine Cardiovascular Exam Present: RRR <Lamar Nation 08/29/20 08:29> - Routine Abdominal Exam Present: soft. Absent: obese <Lamar Nation 08/29/20 08:29> - Routine Extremities Exam Present: pulses intact, normal capillary refill. Absent: calf tenderness <Lamar Nation 08/29/20 08:29> - Detailed Lower Extremity Exam Leg image: 1 - Left leg cellulits noted. Leg and foot has mild erythema and sloughing skin noted today. No edema noted. Left dorsal foot and lateral ankle has patchy places of irritated skin from the edema. Skin is tender to touch. No active drainge to culture. Legs cleaned with Saline and dressed with vaseline gauze to dorsal foot and lateral ankle. 2 - Right lower leg very dry and flaky skin noted. No edema. Patient starting to get and irritated place on the medial side of leg from friction from rubbing legs together while in bed. No drainage noted. Area cleaned with saline, DSD was applied to keep the skin from touching. <Lamar Nation 08/29/20 08:29> - Routine Back/Spine/Pelvis Exam Back/Spine: Present: full ROM <Lamar Nation 08/29/20 08:29> - Routine Skin Exam Present: erythema, dry, warm, cracked <Lamar Nation 08/29/20 08:29> - Routine Neurological Exam Present: alert, moving all extremities, vision grossly intact, hearing grossly intact, normal speech <Lamar Nation 08/29/20 08:29> - Routine Psychiatric Exam Present: normal affect, cooperative <Lamar Nation 08/29/20 08:29> - Urinary Catheter Management Coude Cath placed during this visit: no <Didi Waldrop - 08/29/20 13:46> no <TimursheaLamar L 08/29/20 08:29> Hayes Cath placed during this visit: no <Didi Waldrop - 08/29/20 13:46> no <Lamar Nation - 08/29/20 08:29> Urethral indwelling: Yes <Lamar Nation - 08/29/20 08:29> Progress Note: A&P (1) Abnormal ankle brachial index (ELADIA) Status: Acute (2) PAD (peripheral artery disease) Status: Acute (3) Decreased pedal pulses Status: Acute (4) Left lower lobe pneumonia Status: Acute (5) Frequent falls Status: Acute (6) Cellulitis Status: Acute (7) Onychogryposis of toenail Status: Acute (8) Onychomycosis Status: Acute (9) Pain due to onychomycosis of nail Status: Acute (10) Edema of lower extremity Status: Acute (11) Other specif
--- NOTE | 2020-08-29 08:14 | HMH.ACPN2 ---
Internal Medicine - PN: Subj *Date: 08/29/20 *Time: 08:28 Interval history: Mr. Mccray is sitting in a chair. He appears comfortable. He is more alert and states he does not hurt and is not short of breath. He wonders if he is getting better. He is not nauseated and states he feels like he could eat a bite. He continues with a Hayes catheter. Patient is currently n.p.o. he has a surgical consult for this morning. Repeat chest x-ray on 08/28 revealed persistent bilateral lower lobe pneumonia not significantly changed with small bilateral effusions.Patient also had a modified barium swallow yesterday which showed no aspiration or penetration on the limited exam. He then had a Barium swallow which revealed the following: IMPRESSION: Esophageal dysmotility with essentially no esophagus peristalsis observed. Incomplete filling of the esophagus with longitudinal filling defects in the distal esophagus which could be related to mucosal edema and/or retained food products. Upper endoscopy is recommended as distal esophageal neoplasm is not excluded. Obstruction of the esophagus however is not felt to be present. The soft this was not dilated. Urine culture showed no growth after 24 hours and blood cultures have been negative. CBC this morning revealed a normal white blood cell count with a hemoglobin of 8.7 hematocrit of 28. Blood chemistries show low potassium at 2.9. Renal function has improved with a BUN of 22 and creatinine of 0.9. Exam Vital signs and Labs for Last 24 Hours: Temp Pulse Resp BP Pulse Ox 98.2 F 68 16 97/42 L 94 L 08/29/20 04:00 08/29/20 05:39 08/29/20 04:00 08/29/20 04:00 08/29/20 06:38 Laboratory Results - last 24 hr 08/28/20 08:02: WBC 11.4 H D, RBC 2.90 L, Hgb 9.0 L, Hct 28.8 L, MCV 99.2 H, MCH 30.9, MCHC 31.1 L, RDW 13.2, Plt Count 145, MPV 7.7, Neut % (Auto) 82.1 H, Lymph % (Auto) 10.1, [place] % (Auto) 6.4, Eos % (Auto) 1.3, Baso % (Auto) 0.1, Neut # (Auto) 9.4 H, Lymph # (Auto) 1.2, [place] # (Auto) 0.7, Eos # (Auto) 0.2, Baso # (Auto) 0.0 08/28/20 15:12: Vancomycin Peak 16.4 08/29/20 06:17: Sodium 138, Potassium 2.9 L* D, Chloride 109 H, Carbon Dioxide 25 D, Anion Gap 6.9, BUN 22 H, Creatinine 0.90 D, Estimated Creat Clear 39, Estimated GFR 80, Est GFR ( Amer) 97 D, Glucose 107 H, Calcium 7.3 L 08/29/20 06:17: WBC 8.2 D, RBC 2.79 L, Hgb 8.7 L, Hct 28.0 L, MCV 100.3 H, MCH 31.2, MCHC 31.1 L, RDW 13.1, Plt Count 144, MPV 7.6, Neut % (Auto) 78.8, Lymph % (Auto) 13.4, [place] % (Auto) 6.1, Eos % (Auto) 1.5, Baso % (Auto) 0.2, Neut # (Auto) 6.4, Lymph # (Auto) 1.1, [place] # (Auto) 0.5, Eos # (Auto) 0.1, Baso # (Auto) 0.0 I & O for Last 24 hours: Intake & Output 08/26/20 08/27/20 08/28/20 08/29/20 11:59 11:59 11:59 11:59 Intake Total 1080 / 1080 1236 / 1236 2180 / 2180 2312 / 2312 Output Total 1700 / 1700 1250 / 1250 Balance 1080 / 1080 1211 / 1211 480 / 480 1062 / 1062 Weight 106 lb 112 lb 2 oz 112 lb 1.998 oz 112 lb 1.998 oz Microbiology Reports for the Last 24 Hours: Microbiology 08/27/20 22:00 Urine,Catheterized Urine Culture - Preliminary NO GROWTH AFTER 24 HOURS 08/23/20 13:14 Blood Blood Culture - Final NO GROWTH AFTER 5 DAYS 08/23/20 13:14 Blood Blood Culture - Final NO GROWTH AFTER 5 DAYS - Constitutional no acute distress, cachectic Comments: Sitting in a chair sleeping. Easily awakened. Appears comfortable. - *Routine Respiratory Exam Present: rhonchi (Bilateral) Comments: Congested cough. - *Routine Cardiovascular Exam Present: RRR - *Routine Abdominal Exam Present: soft, normoactive bowel sounds. Absent: tenderness - *Routine Extremities Exam Present: edema (Bilateral leg edema) Comments: Dressings changed per podiatry yesterday please see note. - *Routine Neurological Exam Present: alert Speech is much clearer today. He is
--- NOTE | 2020-08-29 09:40 | SW/DCPLANNER ---
Addendum entered by [facility] 09/04/20 11:13: All patient information has been faxed to Bindu at [place] including NEGATIVE COVID swab. I attempted to contact patients daughter (Kiki) regarding discharge: no answer at this time VM left. Patient will discharge today. Addendum entered by [facility] 09/04/20 09:26: I have informed B[facility]u that this patient is stable for discharge today per Dr Boss. B[facility]u has requested an additional COVID swab: this will be ordered and completed prior to discharge today. Addendum entered by [facility] 09/01/20 11:45: I have updated B[facility]u regarding this patient: discharge date unknown. Bindu has stated that she still has a bed available for this patient at this time. Addendum entered by [facility] 08/31/20 14:44: Updated patient information has been faxed to Bindu at [place]. Discharge date is unknown at this time. Original Note: Updated patient information has been faxed to Bindu with [facility].
--- NOTE | 2020-08-29 09:46 | HMH.ACPN ---
Internal Medicine - PN: Subj *Date: 08/29/20 *Time: 09:47 Exam Vital signs and Labs for Last 24 Hours: Temp Pulse Resp BP Pulse Ox 98.3 F 68 24 120/52 L 85 L 08/29/20 08:00 08/29/20 09:29 08/29/20 08:00 08/29/20 08:00 08/29/20 08:00 Laboratory Results - last 24 hr 08/28/20 15:12: Vancomycin Peak 16.4 08/29/20 06:17: Sodium 138, Potassium 2.9 L* D, Chloride 109 H, Carbon Dioxide 25 D, Anion Gap 6.9, BUN 22 H, Creatinine 0.90 D, Estimated Creat Clear 39, Estimated GFR 80, Est GFR ( Amer) 97 D, Glucose 107 H, Calcium 7.3 L 08/29/20 06:17: WBC 8.2 D, RBC 2.79 L, Hgb 8.7 L, Hct 28.0 L, MCV 100.3 H, MCH 31.2, MCHC 31.1 L, RDW 13.1, Plt Count 144, MPV 7.6, Neut % (Auto) 78.8, Lymph % (Auto) 13.4, [place] % (Auto) 6.1, Eos % (Auto) 1.5, Baso % (Auto) 0.2, Neut # (Auto) 6.4, Lymph # (Auto) 1.1, [place] # (Auto) 0.5, Eos # (Auto) 0.1, Baso # (Auto) 0.0 I & O for Last 24 hours: Intake & Output 08/26/20 08/27/20 08/28/20 08/29/20 23:59 23:59 23:59 23:59 Intake Total 720 / 720 1451 / 1511 2735 / 2735 1182 / 1182 Output Total 1375 / 1375 850 / 850 750 / 750 Balance 720 / 720 76 / 136 1885 / 1885 432 / 432 Weight 48.081 kg 50.859 kg 50.859 kg 50.859 kg Microbiology Reports for the Last 24 Hours: Microbiology 08/27/20 22:00 Urine,Catheterized Urine Culture - Preliminary NO GROWTH AFTER 24 HOURS 08/23/20 13:14 Blood Blood Culture - Final NO GROWTH AFTER 5 DAYS 08/23/20 13:14 Blood Blood Culture - Final NO GROWTH AFTER 5 DAYS Assessment and Plan (1) Abnormal ankle brachial index (ELADIA) Status: Acute Category: Medical Code(s): R68.89 - Other general symptoms and signs (2) PAD (peripheral artery disease) Status: Acute Category: Medical Code(s): I73.9 - Peripheral vascular disease, unspecified (3) Decreased pedal pulses Start date: 08/23/20 Status: Acute Category: Medical Code(s): R09.89 - Other specified symptoms and signs involving the circulatory and respiratory systems (4) Left lower lobe pneumonia Status: Acute Category: Medical Code(s): J18.9 - Pneumonia, unspecified organism (5) Frequent falls Status: Acute Category: Medical Code(s): R29.6 - Repeated falls (6) Cellulitis Status: Acute Category: Medical Code(s): L03.90 - Cellulitis, unspecified (7) Onychogryposis of toenail Start date: 08/23/20 Status: Acute Category: Medical Code(s): L60.2 - Onychogryphosis (8) Onychomycosis Start date: 08/23/20 Status: Acute Category: Medical Code(s): B35.1 - Tinea unguium (9) Pain due to onychomycosis of nail Start date: 08/23/20 Status: Acute Category: Medical Code(s): B35.1 - Tinea unguium; M79.609 - Pain in unspecified limb (10) Edema of lower extremity Start date: 08/23/20 Status: Acute Category: Medical Code(s): R60.0 - Localized edema (11) Other specified symptoms and signs involving the circulatory and respiratory systems Start date: 08/23/20 Status: Acute Category: Medical Code(s): R09.89 - Other specified symptoms and signs involving the circulatory and respiratory systems (12) Anemia Status: Acute Category: Medical Code(s): D64.9 - Anemia, unspecified (13) Pleural effusion Status: Acute Category: Medical Code(s): J90 - Pleural effusion, not elsewhere classified (14) Dysphagia Status: Acute Category: Medical Code(s): R13.10 - Dysphagia, unspecified (15) Hypokalemia Status: Acute Category: Medical Code(s): E87.6 - Hypokalemia (16) Urinary retention Status: Acute Category: Medical Code(s): R33.9 - Retention of urine, unspecified The patient's infection will respond to the chosen ABx?: Yes Is the patient receiving the right drug, dose, and route?: Yes Could a more targeted ABx be ordered?: No
--- NOTE | 2020-08-29 10:49 | P.PN_ITS ---
[facility] Anesthesia Checklist - Patient Identification Patient Identification: Arm Band - Structural Data Admitted From: Inpatient Planned Operative Procedure/s: EGD Consent for Planned Operative Procedure(s) Verified: Yes - NPO Status Verified Time NPO: 00:00 - Airway Assessment C-Spine Mobility Assessed: Yes TMJ Mobility Assessed: Yes Dentition: Edentulous - Neurological Assessment Level of Consciousness: Awake Hx Seizures: No Numbness or tingling in extremities: No - Anesthesia Plan Anesthesia Risk discussed: Yes Anesthesia Plan: Verified ASA Class: III Anesthesia Type: MAC [facility] History I have reviewed the patient's past medical history: Yes Medical History: Reports:: Chronic Obstructive Pulmonary Disease (COPD), Kidney Stones, Peripheral Artery Disease Denies:: Cancer, Coronary Artery Disease, Diabetes Mellitus Type 1, Diabetes Mellitus Type 2, Gastroesophageal Reflux Disease(GERD), Hyperlipidemia, Hypertension, Internal Pacemaker, MRSA *Have you ever received a pneumonia vaccine?: No *Have you received a flu vaccine this season?: No (Became ill when given vaccine in 1950s.) Other Medical History: Reports: Other (Pneumonia) Anesthesia experience/problems:: None Other Surgeries: No: Pacemaker Amputation: No Fractures: No - *Social History Smoking Status: Current every day smoker Tobacco Type: cigarettes # Packs/Day (cigarettes): 1 Alcohol Intake: never Alcohol Intake Frequency:: holidays/special occasions only Substance Use Type: denies use *Occupational Status:: retired Housing: house Household Members: none *Travel in the last 8 weeks: None Family Hx:: Cancer, Diabetes
--- NOTE | 2020-08-29 11:14 | P.PCN_ITS ---
- Procedure: Date: 08/29/20 Patient Date of :: 1935 Procedure Performed:: Esophagogastroduodenoscopy with biopsy Indications:: 85-year-old male multiple acute medical conditions. He had been noted by the nursing staff to have difficulty swallowing. He he therefore underwent modified barium swallow yesterday. This revealed findings of significant dysmotility of the esophagus. Neoplastic process was unable to be ruled out and radiology recommended consideration of upper endoscopy. Therefore surgical consultation was ordered by primary care physician. Performing Provider:: Ronn Moss MD Referring Provider:: Kalyan Boss MD Sedation:: MAC sedation Procedure:: Patient was taken to the endoscopy procedure room. He was positioned in s emilateral position. Adequate intravenous sedation was achieved. Olympus endoscope was inserted via the oropharynx. The esophagus was cannulated. Endoscope was advanced through the esophagus. There was some diffuse mild to moderate esophagitis. Gastroesophageal junction was encountered at approximately 35 cm. There was minimal Schatzki's ring. No evidence of any neoplastic process. Stomach was cannulated and insufflated. Retroflexion revealed moderate sliding hiatal hernia. No evidence of any appreciable gastritis. Pylorus was traversed. Limited evaluation of the duodenum was burton ied out. Endoscope was withdrawn to the distal esophagus. Limited biopsy was performed at the Schatzki's ring due to the patient being on dual antiplatelet therapy. Stomach was desufflated and the endoscope was withdrawn. Findings:: Moderate sliding hiatal hernia Schatzki's ring Mild to moderate diffuse esophagitis No esophageal neoplasm Specimens:: Biopsies gastroesophageal junction Recommendations:: No identifiable esophageal neoplastic process or esophageal obstruction Complications:: None immediately apparent Estimated blood obtained (mL): 2
--- NOTE | 2020-08-29 19:36 | PC.NURSE ---
PT IS RESTING IN BED. NO COMPLAINTS OF DISCOMFORT. PT WAS VERY DROWSY FOR SEVERAL HOURS AFTER ARRIVING BACK TO THE FLOOR FROM EGD. PT WAS ABLE TO EAT DINNER W/O ANY ISSUES WITH SWALLOWING. LUNG SOUNDS DIMINISHED WITH FINE CRACKLES(BILATERAL BASES) ABDOMEN SOFT/NON TENDER WITH ACTIVE BOWEL SOUNDS. WOUNDS NOTED TO BLE. DRESSINGS C/D/I AND CHANGED PER PODIATRY THIS SHIFT. PALPABLE PULSES. BRUISING NOTED TO CATH SITE. PT TOLERATED SITTING UP IN CHAIR FOR SEVERAL HOURS THIS MORNING. WILL CONTINUE TO MONITOR.
[2020-08-29 22:33] LABS: Vancomycin,Trough 10.2 ug/mL (5.0-10.0)
[2020-08-30] VITALS (11 sets, daily range): BP systolic 100–138; BP diastolic 48–82; PULSE 70–84; RESP 16–20; TEMP 36.2–36.8; O2SAT 90–94; BMI 17.9
--- NOTE | 2020-08-30 05:42 | PC.NURSE ---
shift summary pt is alert and oriented X4. bisi sounds are diminished with sats maintained 90% or above on 2L via NC. samuel in place urine is clear and yellow in color. pt able to swallow his night time meds whole, one at a time with no problems. pt denies any nausea, vomiting, or diarrhea. no acute changes will continue to monitor.
[2020-08-30 06:56] LABS: Basophils % 0.1 % (0.1-2.0); Eosinophils # 0.2 K/mm3 (0.0-0.4); Eosinophils % 2.3 % (0.1-12.0); Hematocrit 26.9 % (42.0-52.0); Hemoglobin 8.8 g/dL (14.1-18.0); Lymphocytes # 1.1 K/mm3 (0.7-4.5); Lymphocytes % 15.2 % (10-50); Mean Corpuscular HGB Conc 32.7 g/dL (31.8-35.4); Mean Corpuscular Volume 97.9 fl (80-94); Mean Platelet Volume 8.1 fl (7.4-10.4); Monocytes # 0.5 K/mm3 (0.1-1.0); Monocytes % 6.5 % (1.7-9.3); Neutrophils # 5.5 K/mm3 (1.8-7.8); Neutrophils % 75.8 % (37.0-80.0); Platelet Count 132 K/mm3 (142-424); Red Blood Count 2.75 M/mm3 (4.60-6.20); Red Cell Distribution Width 14.2 % (11.5-17.5); White Blood Count 7.2 K/mm3 (4.8-10.8)
[2020-08-30 07:34] LABS: Anion Gap 6.2 mEq/L (5-15); Blood Urea Nitrogen 14 mg/dl (9-20); Carbon Dioxide 26 mmol/L (22.0-30.0); Chloride 107 mmol/L (98-107); Creatinine Clearance Estimated 43 mL/min (50-200); Estimated Glomerular Filt Rate 92 ml/min (>60); GFR (African American) 111 ML/MIN (>60); Glucose 97 mg/dl (74-100); Potassium 3.2 mmoL/L (3.5-5.1); Sodium 136 mmol/L (136-145)
--- NOTE | 2020-08-30 08:07 | HMH.ACPN2 ---
Internal Medicine - PN: Subj *Date: 08/30/20 *Time: 08:27 Interval history: Patient states he feels pretty good. He denies chest pain, shortness of breath, and abdominal pain. He states he thinks he can eat. Laboratory data this morning with a potassium of 3.2, normal renal function, normal white blood cell count of 7.2 and hemoglobin of 8.8 hematocrit 26.9. Patient had a EGD yesterday by Dr. MossWith the following findings: Moderate sliding hiatal hernia Schatzki's ring Mild to moderate diffuse esophagitis No esophageal neoplasm Per nursing documentation patient has been n.p.o. for multiple testing. He has had very little food intake. Patient continues with Hayes catheter. Leg dressings are being changed daily by podiatry. Exam Vital signs and Labs for Last 24 Hours: Temp Pulse Resp BP Pulse Ox 97.8 F 78 16 107/52 L 90 L 08/30/20 07:58 08/30/20 07:58 08/30/20 07:58 08/30/20 07:58 08/30/20 07:58 Laboratory Results - last 24 hr 08/29/20 06:17: Vancomycin Trough 10.2 H 08/30/20 06:39: WBC 7.2, RBC 2.75 L, Hgb 8.8 L, Hct 26.9 L, MCV 97.9 H, MCH 32.0 H, MCHC 32.7, RDW 14.2, Plt Count 132 L, MPV 8.1, Neut % (Auto) 75.8, Lymph % (Auto) 15.2, [place] % (Auto) 6.5, Eos % (Auto) 2.3, Baso % (Auto) 0.1, Neut # (Auto) 5.5, Lymph # (Auto) 1.1, [place] # (Auto) 0.5, Eos # (Auto) 0.2, Baso # (Auto) 0.0 08/30/20 06:39: Sodium 136, Potassium 3.2 L, Chloride 107, Carbon Dioxide 26, Anion Gap 6.2, BUN 14 D, Creatinine 0.80, Estimated Creat Clear 43, Estimated GFR 92, Est GFR ( Amer) 111, Glucose 97, Calcium 7.0 L I & O for Last 24 hours: Intake & Output 08/27/20 08/28/20 08/29/20 08/30/20 11:59 11:59 11:59 11:59 Intake Total 1236 / 1236 2180 / 2180 2312 / 2312 200 / 200 Output Total 1700 / 1700 1250 / 1250 725 / 725 Balance 1211 / 1211 480 / 480 1062 / 1062 -525 / -525 Weight 112 lb 2 oz 112 lb 1.998 oz 112 lb 1.998 oz 125 lb 6 oz Microbiology Reports for the Last 24 Hours: Microbiology 08/27/20 22:00 Urine,Catheterized Urine Culture - Final NO GROWTH AFTER 48 HOURS - Constitutional cachectic - *Routine Respiratory Exam Present: rhonchi (Bilateral) - *Routine Cardiovascular Exam Present: RRR - *Routine Abdominal Exam Present: soft, normoactive bowel sounds. Absent: tenderness - *Routine Extremities Exam Present: edema (Minimal) - *Routine Skin Exam Present: dry - *Routine Neurological Exam Present: alert Awakened easily today. Does answer questions Assessment and Plan (1) Abnormal ankle brachial index (ELADIA) Status: Acute Category: Medical Code(s): R68.89 - Other general symptoms and signs (2) PAD (peripheral artery disease) Status: Acute Category: Medical Code(s): I73.9 - Peripheral vascular disease, unspecified (3) Decreased pedal pulses Start date: 08/23/20 Status: Acute Category: Medical Code(s): R09.89 - Other specified symptoms and signs involving the circulatory and respiratory systems (4) Left lower lobe pneumonia Status: Acute Category: Medical Code(s): J18.9 - Pneumonia, unspecified organism (5) Frequent falls Status: Acute Category: Medical Code(s): R29.6 - Repeated falls (6) Cellulitis Status: Acute Category: Medical Code(s): L03.90 - Cellulitis, unspecified (7) Onychogryposis of toenail Start date: 08/23/20 Status: Acute Category: Medical Code(s): L60.2 - Onychogryphosis (8) Onychomycosis Start date: 08/23/20 Status: Acute Category: Medical Code(s): B35.1 - Tinea unguium (9) Pain due to onychomycosis of nail Start date: 08/23/20 Status: Acute Category: Medical Code(s): B35.1 - Tinea unguium; M79.609 - Pain in unspecified limb (10) Edema of lower extremity Start date: 08/23/20 Status: Acute Category: Medical Code(s): R60.0 - Localized edema (11) Other specified symptoms and signs involving the circulatory and respiratory syst
--- NOTE | 2020-08-30 09:34 | PC.NURSE ---
Spoke with Jacinta @ Dr. Alcocer office and notified her of calcium of 7.0 @ [phone]
--- NOTE | 2020-08-30 15:27 | PC.NURSE ---
Report given to Vishnu Dangelo RN. He is going to change dsgs to BLE.
--- NOTE | 2020-08-30 19:07 | PC.NURSE ---
Pt alert to self, up to chair this shift. Pt has ate better this shift. VSS/. CB in reach. Dsg's changed to BLE after cleansing. NAD
[2020-08-31] VITALS (15 sets, daily range): BP systolic 93–144; BP diastolic 40–80; PULSE 69–95; RESP 16–20; TEMP 36.3–37.1; O2SAT 91–100; BMI 16.7
--- NOTE | 2020-08-31 03:26 | PC.NURSE ---
No acute changes this shift. A/O to self at this time. Pt is on 1L NC with O2 stats >90. IV patent. Lungs sound diminished with crackles. BLE dressings are C/D/I. Pt is wearing an attends to void since discontinuing the samuel. Crushed night time meds and gave them in apple sauce and pt tolerated well. Transferring pt from chair to bed was a X2-3 assist. VSS, call light within reach. No concerns at this time.
--- NOTE | 2020-08-31 05:56 | PC.NURSE ---
Pt has been resting all night and has not been drinking much this shift. Attends have been dry all shift. PER day shift the samuel was removed and pt has voided since samuel was removed. Abd is soft and non tender. Pt attempted to void and only a scant amount was voided. Observed that pt's penis is very swollen. Continued to encourage thickened liquids and helping pt to void in urinal.
--- NOTE | 2020-08-31 07:59 | XR_ITS ---
PROCEDURE: XR CHEST 2V CLINICAL HISTORY: Bronchitis COMPARISON: CR XR CHEST PORTABLE from 08/23/2020 CR XR CHEST PORTABLE from 08/26/2020 FINDINGS: The cardiomediastinal silhouette and pulmonary vascularity are within normal limits. Medium-sized right effusion and small left effusion with left-sided fissural fluid. Increasing density noted in both lung bases which may be related to worsening pneumonia with effusion. There is an oval opacity in the left mid lung which is developed in the interval and is consistent with loculated fluid within the fissure Cortical expansion of the proximal humerus noted on the right possibly related to old fracture IMPRESSION: Bilateral pleural effusions with bilateral lower lobe consolidation and/or atelectatic change which is slightly worse with loculated fluid in the left major fissure which has developed in the interval Dictated by: Sonny Irizarry MD 08/31/2020 10:56 Sonny Irizarry MD in [facility] 08/31/2020 10:56
--- NOTE | 2020-08-31 08:27 | HMH.ACPN2 ---
Internal Medicine - PN: Subj *Date: 08/31/20 *Time: 08:27 Interval history: Patient states he is not hungry this morning. It does not appear he is eating any of his breakfast. He is complaining of some pain in his right hip. He states he did not sleep all night. He wants to go home. Exam Vital signs and Labs for Last 24 Hours: Temp Pulse Resp BP Pulse Ox 97.5 F L 77 20 136/61 92 L 08/31/20 07:49 08/31/20 07:49 08/31/20 07:49 08/31/20 07:49 08/31/20 07:49 I & O for Last 24 hours: Intake & Output 08/28/20 08/29/20 08/30/20 08/31/20 11:59 11:59 11:59 11:59 Intake Total 2180 / 2180 2312 / 2312 200 / 200 1292 / 1292 Output Total 1700 / 1700 1250 / 1250 975 / 975 Balance 480 / 480 1062 / 1062 -775 / -775 1292 / 1292 Weight 112 lb 1.998 oz 112 lb 1.998 oz 125 lb 6 oz 117 lb 5 oz - Constitutional no acute distress, cachectic - *Routine Respiratory Exam Present: crackles (Faint bibasilar) - *Routine Cardiovascular Exam Present: RRR - *Routine Abdominal Exam Present: soft, normoactive bowel sounds. Absent: tenderness - *Routine Extremities Exam Absent: cyanosis, clubbing, edema - *Routine Skin Exam Present: warm. Absent: rash - *Routine Neurological Exam Present: alert Assessment and Plan (1) Abnormal ankle brachial index (ELADIA) Status: Acute Category: Medical Code(s): R68.89 - Other general symptoms and signs (2) PAD (peripheral artery disease) Status: Acute Category: Medical Code(s): I73.9 - Peripheral vascular disease, unspecified (3) Decreased pedal pulses Start date: 08/23/20 Status: Acute Category: Medical Code(s): R09.89 - Other specified symptoms and signs involving the circulatory and respiratory systems (4) Left lower lobe pneumonia Status: Acute Category: Medical Code(s): J18.9 - Pneumonia, unspecified organism (5) Frequent falls Status: Acute Category: Medical Code(s): R29.6 - Repeated falls (6) Cellulitis Status: Acute Category: Medical Code(s): L03.90 - Cellulitis, unspecified (7) Onychogryposis of toenail Start date: 08/23/20 Status: Acute Category: Medical Code(s): L60.2 - Onychogryphosis (8) Onychomycosis Start date: 08/23/20 Status: Acute Category: Medical Code(s): B35.1 - Tinea unguium (9) Pain due to onychomycosis of nail Start date: 08/23/20 Status: Acute Category: Medical Code(s): B35.1 - Tinea unguium; M79.609 - Pain in unspecified limb (10) Edema of lower extremity Start date: 08/23/20 Status: Acute Category: Medical Code(s): R60.0 - Localized edema (11) Other specified symptoms and signs involving the circulatory and respiratory systems Start date: 08/23/20 Status: Acute Category: Medical Code(s): R09.89 - Other specified symptoms and signs involving the circulatory and respiratory systems (12) Anemia Status: Acute Category: Medical Code(s): D64.9 - Anemia, unspecified (13) Pleural effusion Status: Acute Category: Medical Code(s): J90 - Pleural effusion, not elsewhere classified (14) Dysphagia Status: Acute Category: Medical Code(s): R13.10 - Dysphagia, unspecified (15) Hypokalemia Status: Acute Category: Medical Code(s): E87.6 - Hypokalemia (16) Urinary retention Status: Acute Category: Medical Code(s): R33.9 - Retention of urine, unspecified - Assessment and plan all Dx Assessment and Plan for all problems:: Patient's Hayes was removed and he has had very minimal output. He has not been eating and drinking. Will discuss further care with Dr. Boss.
--- NOTE | 2020-08-31 09:05 | HMH.PHACONS ---
- Pharmacy Consult Date: 08/30/20 Time: 15:00 Referring provider: DR. GALINDO Reason for Consult:: VANCOMYCIN DOSING CHANGE Allergies and ADEs:: Allergies Allergy/AdvReac Type Severity Reaction Status Date / Time iodine Allergy Verified 08/23/20 12:23 Home Medications:: Home Medications Medication Instructions Recorded Confirmed Type No Known Home Medications 08/23/20 08/23/20 History Height: 1.78 m Weight: 53.212 kg Medical History: Reports:: Chronic Obstructive Pulmonary Disease (COPD), Kidney Stones, Peripheral Artery Disease Denies:: Cancer, Coronary Artery Disease, Diabetes Mellitus Type 1, Diabetes Mellitus Type 2, Gastroesophageal Reflux Disease(GERD), Hyperlipidemia, Hypertension, Internal Pacemaker, MRSA, Seizures Assessment and Plan (1) Abnormal ankle brachial index (ELADIA) Status: Acute Category: Medical Code(s): R68.89 - Other general symptoms and signs (2) PAD (peripheral artery disease) Status: Acute Category: Medical Code(s): I73.9 - Peripheral vascular disease, unspecified (3) Decreased pedal pulses Start date: 08/23/20 Status: Acute Category: Medical Code(s): R09.89 - Other specified symptoms and signs involving the circulatory and respiratory systems (4) Left lower lobe pneumonia Status: Acute Category: Medical Code(s): J18.9 - Pneumonia, unspecified organism (5) Frequent falls Status: Acute Category: Medical Code(s): R29.6 - Repeated falls (6) Cellulitis Status: Acute Category: Medical Code(s): L03.90 - Cellulitis, unspecified (7) Onychogryposis of toenail Start date: 08/23/20 Status: Acute Category: Medical Code(s): L60.2 - Onychogryphosis (8) Onychomycosis Start date: 08/23/20 Status: Acute Category: Medical Code(s): B35.1 - Tinea unguium (9) Pain due to onychomycosis of nail Start date: 08/23/20 Status: Acute Category: Medical Code(s): B35.1 - Tinea unguium; M79.609 - Pain in unspecified limb (10) Edema of lower extremity Start date: 08/23/20 Status: Acute Category: Medical Code(s): R60.0 - Localized edema (11) Other specified symptoms and signs involving the circulatory and respiratory systems Start date: 08/23/20 Status: Acute Category: Medical Code(s): R09.89 - Other specified symptoms and signs involving the circulatory and respiratory systems (12) Anemia Status: Acute Category: Medical Code(s): D64.9 - Anemia, unspecified (13) Pleural effusion Status: Acute Category: Medical Code(s): J90 - Pleural effusion, not elsewhere classified (14) Dysphagia Status: Acute Category: Medical Code(s): R13.10 - Dysphagia, unspecified (15) Hypokalemia Status: Acute Category: Medical Code(s): E87.6 - Hypokalemia (16) Urinary retention Status: Acute Category: Medical Code(s): R33.9 - Retention of urine, unspecified - Assessment and plan all Dx Assessment and Plan for all problems:: PATIENT'S RENAL FUNCTION HAS IMPROVED SLIGHTLY. VANCOMYCIN PEAK AND TROUGH LEVELS WERE LOWER THAN EXPECTED DUE TO THIS. RECOMMEND CHANGING VANCOMYCIN DOSING TO 1 GM Q24H AT THIS TIME.
[2020-08-31 10:42] LABS: Basophils % 0.2 % (0.1-2.0); Eosinophils # 0.2 K/mm3 (0.0-0.4); Hematocrit 36.3 % (42.0-52.0); Lymphocytes # 1.5 K/mm3 (0.7-4.5); Lymphocytes % 13.8 % (10-50); Mean Corpuscular HGB Conc 30.2 g/dL (31.8-35.4); Mean Corpuscular Hemoglobin 30.9 pg (27.0-31.2); Mean Corpuscular Volume 102.2 fl (80-94); Mean Platelet Volume 7.4 fl (7.4-10.4); Monocytes # 0.9 K/mm3 (0.1-1.0); Monocytes % 8.1 % (1.7-9.3); Neutrophils # 8.2 K/mm3 (1.8-7.8); Platelet Count 177 K/mm3 (142-424); Red Blood Count 3.55 M/mm3 (4.60-6.20); Red Cell Distribution Width 13.8 % (11.5-17.5); White Blood Count 10.8 K/mm3 (4.8-10.8)
[2020-08-31 10:53] LABS: Anion Gap 8.9 mEq/L (5-15); Blood Urea Nitrogen 12 mg/dl (9-20); Calcium 7.6 mg/dl (8.4-10.2); Carbon Dioxide 25 mmol/L (22.0-30.0); Chloride 107 mmol/L (98-107); Creatinine Clearance Estimated 41 mL/min (50-200); Estimated Glomerular Filt Rate 92 ml/min (>60); GFR (African American) 111 ML/MIN (>60); Glucose 72 mg/dl (74-100); Potassium 3.9 mmoL/L (3.5-5.1); Sodium 137 mmol/L (136-145)
--- NOTE | 2020-08-31 16:23 | PC.NURSE ---
HE IS AOX1 TO PERSON ONLY, WILL ANSWER TO HIS NAME BUT HAS POOR ARTICULATION. NO APPETITE THIS SHIFT. STAFF ATTEMPTED MULTIPLE TIMES TO GET PT TO EAT BUT HE REFUSED. HE WAS ABLE TO TOLERATE PO MEDS CRUSHED IN APPLESAUCE. HIS ABD I SOFT AND NON-TENDER WITH HYPOACTIVE BOWEL SOUNDS. MCMAHON CATH WAS INSERTED THIS SHIFT FOR URINARY RETENTION. GENERALIZED EDEMA NOTED T/O TORSO PREDOMINATELY IN THE LOWER BACK. SCROTAL AND PENILE EDEMA NOTED. DR GALINDO MADE AWARE OF THIS DURING ROUNDS. PT DENIES N/V/D AND PAIN. DSG CHANGED TO BLE PER ORDER. DSG TO COCCYX STILL IN PACE C/D/I. VITAL SIGNS HAVE REMAINED STABLE T/O SHIFT. PT HAS BEEN REPOSITIONED NEEDED BUT PREFERS TO LAY ON LEFT SIDE.
--- NOTE | 2020-08-31 21:29 | PC.NURSE ---
ASSISTED IN BATHING PATIENT. FRESH LINENS APPLIED. PT RESTING COMFORTABLY AT THIS TIME.
[2020-09-01] VITALS (14 sets, daily range): BP systolic 100–113; BP diastolic 41–55; PULSE 71–96; RESP 18–24; TEMP 36.3–38.8; O2SAT 90–100; BMI 17.4
[2020-09-01 02:06] LABS: Vancomycin,Peak 22.7 ug/ml (11-39)
--- NOTE | 2020-09-01 03:49 | PC.NURSE ---
Pt is A/O X2. Pt could state his name and location he is at he replied with Isai Lambert. Pt had X1 bowel movement this shift, it was loose. Bed bath was given to pt and he tolerated well. Pt is on RA with stats in high 90's all shift. Lungs sound diminished with crackles. BLE dressings are C/D/I. Pt slept very well all shift. Admin meds per APR. VSS. Hayes has been draining clear, yellow urine. No concerns at this time.
--- NOTE | 2020-09-01 08:26 | HMH.ACPN2 ---
Internal Medicine - PN: Subj *Date: 09/01/20 *Time: 08:26 Interval history: Patient did not have a good night. He has been very lethargic and has been trying to pull out tubing, therefore mittens had to be placed. Nursing states he had a fever of over 101 this morning. Yesterday he was having minimal urinary output and the catheter had to be replaced. Nursing states his penis is very swollen. His chest x-ray showed bilateral pleural effusions with bilateral lower lobe consolidation which was worse than previous chest x-ray. He also had loculated fluid in the left major fissure. He was started on 20 mg of Lasix IV daily. Both blood and urine culture showed no growth. Sputum has not been collected. An AFB stain and fungal culture of the sputum was ordered yesterday. Exam Vital signs and Labs for Last 24 Hours: Temp Pulse Resp BP Pulse Ox 101.8 F H 96 H 24 105/55 L 96 09/01/20 07:19 09/01/20 07:19 09/01/20 07:19 09/01/20 07:19 09/01/20 07:19 Laboratory Results - last 24 hr 08/31/20 10:26: WBC 10.8 D, RBC 3.55 L D, Hgb 11.0 L, Hct 36.3 L, MCV 102.2 H, MCH 30.9, MCHC 30.2 L, RDW 13.8, Plt Count 177 D, MPV 7.4, Neut % (Auto) 76.0, Lymph % (Auto) 13.8, [place] % (Auto) 8.1, Eos % (Auto) 2.0, Baso % (Auto) 0.2, Neut # (Auto) 8.2 H, Lymph # (Auto) 1.5, [place] # (Auto) 0.9, Eos # (Auto) 0.2, Baso # (Auto) 0.0 08/31/20 10:26: Sodium 137, Potassium 3.9 D, Chloride 107, Carbon Dioxide 25, Anion Gap 8.9, BUN 12, Creatinine 0.80, Estimated Creat Clear 41, Estimated GFR 92, Est GFR ( Amer) 111, Glucose 72 L, Calcium 7.6 L 09/01/20 01:00: Vancomycin Peak 22.7 I & O for Last 24 hours: Intake & Output 08/29/20 08/30/20 08/31/20 09/01/20 11:59 11:59 11:59 11:59 Intake Total 2312 / 2312 200 / 200 1292 / 1292 1380 / 1380 Output Total 1250 / 1250 975 / 975 2575 / 2575 Balance 1062 / 1062 -775 / -775 1292 / 1292 -1195 / -1195 Weight 112 lb 1.998 oz 125 lb 6 oz 117 lb 5 oz 122 lb 2 oz - Constitutional cachectic Comments: Sleeping this morning and does not wake for exam - *Routine Respiratory Exam Present: decreased breath sounds, rhonchi, crackles (Bibasilar) - *Routine Cardiovascular Exam Present: RRR - *Routine Abdominal Exam Present: soft, normoactive bowel sounds. Absent: tenderness - *Routine Extremities Exam Absent: cyanosis, clubbing, edema - *Routine Skin Exam Present: warm, ecchymosis. Absent: rash - *Routine Neurological Exam Present: altered mental status Assessment and Plan (1) Abnormal ankle brachial index (ELADIA) Status: Acute Category: Medical Code(s): R68.89 - Other general symptoms and signs (2) PAD (peripheral artery disease) Status: Acute Category: Medical Code(s): I73.9 - Peripheral vascular disease, unspecified (3) Decreased pedal pulses Start date: 08/23/20 Status: Acute Category: Medical Code(s): R09.89 - Other specified symptoms and signs involving the circulatory and respiratory systems (4) Left lower lobe pneumonia Status: Acute Category: Medical Code(s): J18.9 - Pneumonia, unspecified organism (5) Frequent falls Status: Acute Category: Medical Code(s): R29.6 - Repeated falls (6) Cellulitis Status: Acute Category: Medical Code(s): L03.90 - Cellulitis, unspecified (7) Onychogryposis of toenail Start date: 08/23/20 Status: Acute Category: Medical Code(s): L60.2 - Onychogryphosis (8) Onychomycosis Start date: 08/23/20 Status: Acute Category: Medical Code(s): B35.1 - Tinea unguium (9) Pain due to onychomycosis of nail Start date: 08/23/20 Status: Acute Category: Medical Code(s): B35.1 - Tinea unguium; M79.609 - Pain in unspecified limb (10) Edema of lower extremity Start date: 08/23/20 Status: Acute Category: Medical Code(s): R60.0 - Localized edema (11) Other specified symptoms and signs involving the circulatory and respiratory systems Start date: 08/23/20 Status: Acute
[2020-09-01 09:17] LABS: Microscopic, Urine URINE MICROSCOPIC (MICROSCOPIC)
[2020-09-01 09:19] LABS: Appearance,Urine CLEAR (Clear); Bilirubin,Urine Negative (Negative); Blood, Urine 3+ (Negative); Color,Urine YELLOW (Yellow); Glucose,Urine (UA) Negative (Negative); Ketones,Urine Negative (Negative); Leukocyte Esterase,Urine Negative (Negative); Nitrate,Urine Negative (Negative); Protein,Urine 1+ (Negative); Specific Gravity, Urine >= 1.030 (1.005-1.030); Urobilinogen,Urine 0.2 EU/dl (0.2)
[2020-09-01 09:21] LABS: Basophils % 0.3 % (0.1-2.0); Eosinophils # 0.1 K/mm3 (0.0-0.4); Eosinophils % 0.7 % (0.1-12.0); Hematocrit 28.9 % (42.0-52.0); Lymphocytes # 2.1 K/mm3 (0.7-4.5); Lymphocytes % 14.9 % (10-50); Mean Corpuscular HGB Conc 31.9 g/dL (31.8-35.4); Mean Corpuscular Hemoglobin 31.6 pg (27.0-31.2); Mean Corpuscular Volume 99.2 fl (80-94); Mean Platelet Volume 7.9 fl (7.4-10.4); Monocytes % 7.3 % (1.7-9.3); Neutrophils # 10.7 K/mm3 (1.8-7.8); Neutrophils % 76.8 % (37.0-80.0); Platelet Count 177 K/mm3 (142-424); Red Blood Count 2.91 M/mm3 (4.60-6.20); Red Cell Distribution Width 14.8 % (11.5-17.5); White Blood Count 13.9 K/mm3 (4.8-10.8)
[2020-09-01 09:35] LABS: Alanine Aminotransferase 157 U/L (12-78); Albumin Level 2.4 g/dl (3.5-5.0); Albumin/Globulin Ratio 0.9 (1.1-1.8); Alkaline Phosphatase 87 U/L (38-126); Anion Gap 13.2 mEq/L (5-15); Aspartate Amino Transferase 169 U/L (17-59); Bilirubin,Total 0.7 mg/dl (0.2-1.3); Blood Urea Nitrogen 11 mg/dl (9-20); Carbon Dioxide 24 mmol/L (22.0-30.0); Chloride 106 mmol/L (98-107); Creatinine Clearance Estimated 42 mL/min (50-200); Estimated Glomerular Filt Rate 80 ml/min (>60); GFR (African American) 97 ML/MIN (>60); Globulin 2.7 g/dL (1.3-3.2); Glucose 99 mg/dl (74-100); Potassium 3.2 mmoL/L (3.5-5.1); Sodium 140 mmol/L (136-145); Total Protein,Serum 5.1 g/dl (6.3-8.2)
[2020-09-01 09:38] LABS: Calcium 6.9 mg/dl (8.4-10.2)
[2020-09-01 09:44] LABS: NT Pro Brain Natriuretic Pep. 15100 pg/mL (0-450)
[2020-09-01 09:47] LABS: Amorphous Sediment,Urine 1+ /lpf; Squamous Epithelial Cell,Urine Occasional #/hpf (0-5)
--- NOTE | 2020-09-01 10:53 | PC.NURSE ---
SPUTUM SAMPLE SENT TO LAB @ 3890
[2020-09-01 11:41] LABS: Hemoglobin 9.2 g/dL (14.1-18.0)
--- NOTE | 2020-09-01 17:05 | PC.NURSE ---
Pt has been pleasant and cooperative this shift. Alert to self and occasionally place. No complaints of pain or SOA. Pt is currently receiving O2 via NC @ 1 LPM with sats. >90%. Lung sounds reveal crackles/rhonchi. 2+ edema noted to penis/scrotum. Bilateral butler dressings C/D/I. Reddened area noted to coccyx and covered with a pressure-relief dressing. Temperature noted to be elevated this AM. After Tylenol administration, temperature has remained WNL. Appetite is poor and pt has refused all meals thus far today. F/C is patent and draining clear, yellow urine at bedside to gravity. 1 large, brown, loose stool this shift. Telemetry reveals NSR. 20 G peripheral IV in the RT AC is patent and infusing D5W 0.45% NS @ 75 ML/HR. 20 G peripheral IV in the LT wrist is patent and SL. VSS. Call light within reach. Will continue to monitor.
[2020-09-01 21:30] LABS: Vancomycin,Trough 12.9 ug/mL (5.0-10.0)
--- NOTE | 2020-09-01 21:43 | PC.NURSE ---
contacted [facility] for results of vanc trough of 12.9, [facility] stated it was ok to give 2100 dose
[2020-09-02] VITALS (11 sets, daily range): BP systolic 98–121; BP diastolic 34–52; PULSE 66–96; RESP 14–22; TEMP 36.4–36.7; O2SAT 89–100; BMI 16.9
--- NOTE | 2020-09-02 05:48 | PC.NURSE ---
pt is alert to name and birthdate, has rested t/o shift, samuel remains in place with dark yellow urine present, remains on 1L NC, scrotum and penis are extremely edematous with yellow drainage noted, pt has not complained of pain t/o shift
--- NOTE | 2020-09-02 08:55 | HMH.ACPN2 ---
Internal Medicine - PN: Subj *Date: 09/02/20 *Time: 08:55 Interval history: Nursing staff reports patient is more alert and cooperative today Exam Vital signs and Labs for Last 24 Hours: Temp Pulse Resp BP Pulse Ox 98.0 F 78 17 121/41 L 100 09/02/20 08:00 09/02/20 08:00 09/02/20 08:00 09/02/20 08:00 09/02/20 08:00 Laboratory Results - last 24 hr 09/01/20 09:00: Urine Color Yellow, Urine Appearance Clear, Urine pH 5.0, Ur Specific [place] >= 1.030, Urine Protein 1+, Urine Glucose (UA) Negative, Urine Ketones Negative, Urine Blood 3+, Urine Nitrate Negative, Urine Bilirubin Negative, Urine Urobilinogen 0.2, Ur Leukocyte Esterase Negative, Urine RBC 10-20, Urine WBC 3-5, Ur Squamous Epith Cells Occasional, Amorphous Sediment 1+, Urine Bacteria None 09/01/20 09:18: WBC 13.9 H D, RBC 2.91 L, Hgb 9.2 L D, Hct 28.9 L, MCV 99.2 H, MCH 31.6 H, MCHC 31.9, RDW 14.8, Plt Count 177, MPV 7.9, Neut % (Auto) 76.8, Lymph % (Auto) 14.9, [place] % (Auto) 7.3, Eos % (Auto) 0.7, Baso % (Auto) 0.3, Neut # (Auto) 10.7 H, Lymph # (Auto) 2.1, [place] # (Auto) 1.0, Eos # (Auto) 0.1, Baso # (Auto) 0.0 09/01/20 09:18: Sodium 140, Potassium 3.2 L, Chloride 106, Carbon Dioxide 24, Anion Gap 13.2, BUN 11, Creatinine 0.90, Estimated Creat Clear 42, Estimated GFR 80, Est GFR ( Amer) 97, Glucose 99 D, Calcium 6.9 L, Total Bilirubin 0.7, AST 169 H, ALT 157 H, Alkaline Phosphatase 87, Total Protein 5.1 L D, Albumin 2.4 L, Globulin 2.7, Albumin/Globulin Ratio 0.9 L 09/01/20 09:18: NT-Pro-B Natriuret Pep 87907 H 09/01/20 20:56: Vancomycin Trough 12.9 H Vital Signs - 24 hr 09/01/20 09:02 09/01/20 10:50 09/01/20 11:15 Temperature 99.8 F H 99.8 F H Pulse Rate 73 Pulse Rate [Apical] 82 Pulse Rate [Radial] Respiratory Rate Blood Pressure [Right Arm] 100/48 L 02 Sat by Pulse Oximetry 98 96 09/01/20 12:00 09/01/20 14:30 09/01/20 15:38 Temperature 98.7 F Pulse Rate 80 73 Pulse Rate [Apical] 77 Pulse Rate [Radial] Respiratory Rate 20 Blood Pressure [Right Arm] 111/50 L 02 Sat by Pulse Oximetry 91 L 95 09/01/20 16:00 09/01/20 19:10 09/01/20 20:00 Temperature 98.6 F Pulse Rate 80 71 75 Pulse Rate [Apical] 73 Pulse Rate [Radial] Respiratory Rate 18 Blood Pressure [Right Arm] 105/41 L 02 Sat by Pulse Oximetry 90 L 100 09/02/20 00:00 09/02/20 04:00 09/02/20 06:45 Temperature 97.7 F 97.7 F Pulse Rate 70 70 66 Pulse Rate [Apical] 96 H Pulse Rate [Radial] 67 Respiratory Rate 16 22 Blood Pressure [Right Arm] 98/52 L 108/47 L 02 Sat by Pulse Oximetry 98 94 L 100 09/02/20 08:00 Temperature 98.0 F Pulse Rate Pulse Rate [Apical] 78 Pulse Rate [Radial] Respiratory Rate 17 Blood Pressure [Right Arm] 121/41 L 02 Sat by Pulse Oximetry 100 I & O for Last 24 hours: Intake & Output 08/30/20 08/31/20 09/01/20 09/02/20 23:59 23:59 23:59 23:59 Intake Total 350 / 350 1572 / 1572 1750 / 1750 1011 / 1011 Output Total 975 / 975 1375 / 1375 2025 / 5 560 / 560 Balance -625 / -625 197 / 197 -275 / -575 451 / 451 Weight 125 lb 6 oz 117 lb 5 oz 122 lb 2 oz 118 lb 8 oz Microbiology Reports for the Last 24 Hours: Microbiology 08/27/20 10:45 Sputum - Expectorated Sputum Gram Stain - Final 08/27/20 10:45 Sputum - Expectorated Sputum Sputum Culture - Preliminary 09/01/20 10:45 Sputum - Expectorated Sputum - Final Not Reportable 09/01/20 10:45 Sputum - Expectorated Sputum - Final Not Reportable - Constitutional cachectic Comments: awakens to voice - *Routine Respiratory Exam Present: decreased breath sounds, crackles (bibasilar) - *Routine Cardiovascular Exam Present: RRR - *Routine Extremities Exam Absent: edema Assessment and Plan (1) Abnormal ankle brachial index (ELADIA) Status: Acute Category: Medical Code(s): R68.89 - Other general symptoms and signs (2) PAD (peripheral artery diseas
--- NOTE | 2020-09-02 10:02 | P.CONPHA_ITS ---
- Pharmacy Consult Date: 09/02/20 Time: 10:02 Referring provider: DR. GALINDO Reason for Consult:: VANCOMYCIN LEVELS Allergies and ADEs:: Allergies Allergy/AdvReac Type Severity Reaction Status Date / Time iodine Allergy Verified 08/23/20 12:23 Home Medications:: Home Medications Medication Instructions Recorded Confirmed Type No Known Home Medications 08/23/20 08/23/20 History Height: 1.78 m Weight: 53.751 kg Laboratory Results:: Laboratory Results - last 24 hr 09/01/20 09:18: Hgb 9.2 L D 09/01/20 20:56: Vancomycin Trough 12.9 H Medical History: Reports:: Chronic Obstructive Pulmonary Disease (COPD), Kidney Stones, Peripheral Artery Disease Denies:: Cancer, Coronary Artery Disease, Diabetes Mellitus Type 1, Diabetes Mellitus Type 2, Gastroesophageal Reflux Disease(GERD), Hyperlipidemia, Hypertension, Internal Pacemaker, MRSA, Seizures Assessment and Plan (1) Abnormal ankle brachial index (ELADIA) Status: Acute Category: Medical Code(s): R68.89 - Other general symptoms and signs (2) PAD (peripheral artery disease) Status: Acute Category: Medical Code(s): I73.9 - Peripheral vascular disease, unspecified (3) Decreased pedal pulses Start date: 08/23/20 Status: Acute Category: Medical Code(s): R09.89 - Other specified symptoms and signs involving the circulatory and respiratory systems (4) Left lower lobe pneumonia Status: Acute Category: Medical Code(s): J18.9 - Pneumonia, unspecified organism (5) Frequent falls Status: Acute Category: Medical Code(s): R29.6 - Repeated falls (6) Cellulitis Status: Acute Category: Medical Code(s): L03.90 - Cellulitis, unspecified (7) Onychogryposis of toenail Start date: 08/23/20 Status: Acute Category: Medical Code(s): L60.2 - Onychogryphosis (8) Onychomycosis Start date: 08/23/20 Status: Acute Category: Medical Code(s): B35.1 - Tinea unguium (9) Pain due to onychomycosis of nail Start date: 08/23/20 Status: Acute Category: Medical Code(s): B35.1 - Tinea unguium; M79.609 - Pain in unspecified limb (10) Edema of lower extremity Start date: 08/23/20 Status: Acute Category: Medical Code(s): R60.0 - Localized edema (11) Other specified symptoms and signs involving the circulatory and respiratory systems Start date: 08/23/20 Status: Acute Category: Medical Code(s): R09.89 - Other specified symptoms and signs involving the circulatory and respiratory systems (12) Anemia Status: Acute Category: Medical Code(s): D64.9 - Anemia, unspecified (13) Pleural effusion Status: Acute Category: Medical Code(s): J90 - Pleural effusion, not elsewhere classified (14) Dysphagia Status: Acute Category: Medical Code(s): R13.10 - Dysphagia, unspecified (15) Hypokalemia Status: Acute Category: Medical Code(s): E87.6 - Hypokalemia (16) Urinary retention Status: Acute Category: Medical Code(s): R33.9 - Retention of urine, un specified - Assessment and plan all Dx Assessment and Plan for all problems:: PATIENT'S PEAK LEVEL RETURNED AT 22.7 AND TROUGH AT 12.9. BASED ON THESE LEVELS, AT CURRENT DOSE OF 1,000MG, AUC IS CALCULATED AT 418.9. RECOMMEND CONTINUING CURRENT DOSE AT THIS TIME. PHARMACY WILL CONTINUE TO FOLLOW. -PHYLLIS MACEDO PHARMD
--- NOTE | 2020-09-02 15:32 | PC.NURSE ---
RA SAT=80%, RETURNED PT BACK TO 1L NC
--- NOTE | 2020-09-02 17:04 | PC.NURSE ---
Pt has been pleasant and cooperative this shift. Alert to self and occasionally place. No complaints of pain or SOA. Pt is currently receiving O2 via NC @ 1 LPM with sats. >90%. Lung sounds reveal crackles/rhonchi. 3+ edema and weeping, yellow fluid noted to penis/scrotum. Bilateral butler dressings changed per MD order and noted to be C/D/I. Reddened area to coccyx covered with a pressure-relief dressing. Pt assisted into recliner this AM with maximum assistance and has remained in the chair since. Appetite remains poor, although pt did eat about 20% of breakfast and dinner. F/C is patent and draining clear, yellow urine at bedside to gravity. No BM this shift. 20 G peripheral IV in the RT AC is patent and infusing D5W 0.45% NS w/ 20 K+ @ 75 ML/HR. VSS. Call light within reach. Will continue to monitor.
--- NOTE | 2020-09-02 21:18 | PC.NURSE ---
BLOOD PRESSURE WAS REPORTED TO RN ON 1999 VITALS. K.M
[2020-09-03] VITALS (11 sets, daily range): BP systolic 92–110; BP diastolic 36–48; PULSE 69–81; RESP 16–20; TEMP 36.4–37.1; O2SAT 85–93; BMI 16.7
--- NOTE | 2020-09-03 04:47 | PC.NURSE ---
shift summary pt is alert but only oriented to person and sometimes place. lung sounds are diminished with crackles and rhonchi. 3+ edema and weeping yellowish fluid noted on scrotum. samuel in place urine is clear and dark yellow in color. pt has had no complaints and has rested comfortably for most of the shift. pt turned q2 to avoid skin breakdown. no acute changes will continue to monitor.
[2020-09-03 06:23] LABS: Basophils % 0.2 % (0.1-2.0); Eosinophils # 0.1 K/mm3 (0.0-0.4); Eosinophils % 0.7 % (0.1-12.0); Hematocrit 26.7 % (42.0-52.0); Hemoglobin 8.4 g/dL (14.1-18.0); Lymphocytes # 1.1 K/mm3 (0.7-4.5); Mean Corpuscular HGB Conc 31.5 g/dL (31.8-35.4); Mean Corpuscular Hemoglobin 31.8 pg (27.0-31.2); Mean Corpuscular Volume 100.9 fl (80-94); Mean Platelet Volume 8.5 fl (7.4-10.4); Monocytes # 0.6 K/mm3 (0.1-1.0); Monocytes % 6.6 % (1.7-9.3); Neutrophils # 7.2 K/mm3 (1.8-7.8); Neutrophils % 80.5 % (37.0-80.0); Platelet Count 114 K/mm3 (142-424); Red Blood Count 2.65 M/mm3 (4.60-6.20); Red Cell Distribution Width 14.7 % (11.5-17.5); White Blood Count 8.9 K/mm3 (4.8-10.8)
[2020-09-03 06:52] LABS: Anion Gap 6.7 mEq/L (5-15); Blood Urea Nitrogen 9 mg/dl (9-20); Carbon Dioxide 33 mmol/L (22.0-30.0); Chloride 103 mmol/L (98-107); Creatinine Clearance Estimated 40 mL/min (50-200); Estimated Glomerular Filt Rate 80 ml/min (>60); GFR (African American) 97 ML/MIN (>60); Glucose 96 mg/dl (74-100); Potassium 3.7 mmoL/L (3.5-5.1); Sodium 139 mmol/L (136-145)
--- NOTE | 2020-09-03 08:18 | HMH.ACPN2 ---
Internal Medicine - PN: Subj *Date: 09/03/20 *Time: 08:18 Interval history: He is reported to have had a good day yesterday. He spent much of the day up in the chair. He has had no respiratory distress but keeps nasal O2 in place at 1 L. His stats stay above 90% with nasal O2. He still has decreased breath sounds at the bases and bilateral rales. His markedly elevated brain natruretic peptide is noted. Today he has some neck vein distention but very little edema. Legs are wrapped with an Nicolas dressing. Exam Vital signs and Labs for Last 24 Hours: Temp Pulse Resp BP Pulse Ox 97.6 F 73 16 99/36 L 85 L 09/03/20 04:00 09/03/20 07:25 09/03/20 04:00 09/03/20 04:00 09/03/20 07:25 Laboratory Results - last 24 hr 09/03/20 05:09: WBC 8.9 D, RBC 2.65 L, Hgb 8.4 L, Hct 26.7 L, MCV 100.9 H, MCH 31.8 H, MCHC 31.5 L, RDW 14.7, Plt Count 114 L D, MPV 8.5, Neut % (Auto) 80.5 H, Lymph % (Auto) 12.0, Bullock % (Auto) 6.6, Eos % (Auto) 0.7, Baso % (Auto) 0.2, Neut # (Auto) 7.2, Lymph # (Auto) 1.1, Bullock # (Auto) 0.6, Eos # (Auto) 0.1, Baso # (Auto) 0.0 09/03/20 05:09: Sodium 139, Potassium 3.7, Chloride 103, Carbon Dioxide 33 H D, Anion Gap 6.7, BUN 9, Creatinine 0.90, Estimated Creat Clear 40, Estimated GFR 80, Est GFR ( Amer) 97, Glucose 96, Calcium 7.0 L I & O for Last 24 hours: Intake & Output 08/31/20 09/01/20 09/02/20 09/03/20 11:59 11:59 11:59 11:59 Intake Total 1292 / 1292 1380 / 1380 2010 1165 / 1165 Output Total 2575 / 2575 2485 / 2485 1000 / 1000 Balance 1292 / 1292 -1195 / -1195 -474 / -474 165 / 165 Weight 117 lb 5 oz 122 lb 2 oz 118 lb 8 oz 116 lb 7 oz Microbiology Reports for the Last 24 Hours: Microbiology 08/27/20 10:45 Sputum - Expectorated Sputum Gram Stain - Final 08/27/20 10:45 Sputum - Expectorated Sputum Sputum Culture - Preliminary 09/01/20 10:45 Sputum - Expectorated Sputum Acid Fast Bacilli Smear - Final - Constitutional no acute distress - *Routine HEENT Exam Head: Present: normocephalic Eye: Present: PERRL ENT: Present: mucous membranes moist - *Routine Neck Exam Present: JVD (Mild) - Routine Chest/Breast/Axilla Exam Chest wall: Absent: tenderness - *Routine Respiratory Exam Present: decreased breath sounds, rales (Bilaterally at bases). Absent: respiratory distress - *Routine Cardiovascular Exam Present: RRR - *Routine Abdominal Exam Present: soft. Absent: tenderness - *Routine Exam Penile: Present: swelling (Hayes in place.), erythema Scrotal: Present: swelling, erythema Groin: Present: erythema - *Routine Extremities Exam Absent: edema - *Routine Skin Exam Present: intact (Except for the groin intertrigo), warm. Absent: rash - *Routine Neurological Exam Present: alert Assessment and Plan (1) Abnormal ankle brachial index (ELADIA) Status: Acute Category: Medical Code(s): R68.89 - Other general symptoms and signs (2) PAD (peripheral artery disease) Status: Acute Category: Medical Code(s): I73.9 - Peripheral vascular disease, unspecified (3) Decreased pedal pulses Start date: 08/23/20 Status: Acute Category: Medical Code(s): R09.89 - Other specified symptoms and signs involving the circulatory and respiratory systems (4) Left lower lobe pneumonia Status: Acute Category: Medical Code(s): J18.9 - Pneumonia, unspecified organism (5) Frequent falls Status: Acute Category: Medical Code(s): R29.6 - Repeated falls (6) Cellulitis Status: Acute Category: Medical Code(s): L03.90 - Cellulitis, unspecified (7) Onychogryposis of toenail Start date: 08/23/20 Status: Acute Category: Medical Code(s): L60.2 - Onychogryphosis (8) Onychomycosis Start date: 08/23/20 Status: Acute Category: Medical Code(s): B35.1 - Tinea unguium (9) Pain due to onychomycosis of nail Start date: 08/23/20 Status: Acute Category: Medical Code(s): B35.1 - Tinea unguium; M79.609 - Pain
--- NOTE | 2020-09-03 08:25 | XR_ITS ---
PROCEDURE INFORMATION: Exam: XR Chest Exam date and time: 09/03/2020 8:25 AM Age: 85 years old Clinical indication: Shortness of breath; Additional info: Pneumonia TECHNIQUE: Imaging protocol: XR of the chest. Views: 1 view. COMPARISON: CR XR CHEST 2V 08/31/2020 10:21 AM FINDINGS: Lungs: Opacities in both bases and mid lung regions may represent atelectasis or pneumonia.. Pleural spaces: There may be mild to moderate bilateral pleural effusions. Heart/Mediastinum: Cardiomegaly Bones/joints: Unremarkable. IMPRESSION: 1. Opacities in both bases and mid lung regions may represent atelectasis or pneumonia.. 2. There may be mild bilateral pleural effusions.
--- NOTE | 2020-09-03 18:00 | PC.NURSE ---
Pt has been pleasant and cooperative this shift. Alert to self and place. No complaints of pain or SOA. Pt is currently receiving O2 via NC @ 3 LPM with sats. >90%. Lung sounds reveal crackles/rhonchi. Penis/scrotum are slightly edematous, although no longer weeping. Bilateral butler dressings changed per MD order and noted to be C/D/I. Reddened area to coccyx covered with a pressure-relief dressing. Pt reports being tired today and has slept for the majority of the shift. Pt refused a bath and refused to get OOB this shift. He has been turned/repositioned Q2H today. Appetite remains poor and pt has only eaten about 10% of breakfast and lunch. Pt refused dinner. F/C is patent and draining clear, yellow urine at bedside to gravity. No BM this shift. 20 G peripheral IV in the RT AC is patent and infusing D5W 0.45% NS w/ 20 K+ @ 75 ML/HR. B/P noted to be low. Other VSS. Call light within reach. Will continue to monitor.
[2020-09-04] VITALS: BP 102/41; PULSE 80; RESP 16; TEMP 37.1; O2SAT 93
--- NOTE | 2020-09-04 03:13 | PC.NURSE ---
shift summary pt is alert but only oriented to person and place. lung sounds are diminished with crackles and rhonchi. edema noted on scrotum and penis but has decreased since previous shift. samuel in place urine is clear and dark yellow in color. pt has had no complaints and has rested comfortably for most of the shift. pt turned q2 to avoid further skin breakdown. no acute changes will continue to monitor.
[2020-09-04 04:00] VITALS: BP 100/48; PULSE 82; RESP 16; TEMP 37.1; O2SAT 93
[2020-09-04 05:00] VITALS: BMI 17.0
[2020-09-04 05:57] VITALS: PULSE 86; PULSE 87
[2020-09-04 07:56] VITALS: BP 109/44; PULSE 78; RESP 19; TEMP 36.7; O2SAT 90
--- NOTE | 2020-09-04 07:56 | HMH.ACPN2 ---
Internal Medicine - PN: Subj *Date: 09/04/20 *Time: 07:56 Interval history: Pt is resting in bed and without complaint this morning. He denies pain and reports he tolerated breakfast well I ate quite a bit . Exam Vital signs and Labs for Last 24 Hours: Temp Pulse Resp BP Pulse Ox 98.7 F 86 16 100/48 L 93 L 09/04/20 04:00 09/04/20 05:57 09/04/20 04:00 09/04/20 04:00 09/04/20 04:00 I & O for Last 24 hours: Intake & Output 09/01/20 09/02/20 09/03/20 09/04/20 11:59 11:59 11:59 11:59 Intake Total 1380 / 1380 2010 1175 / 1175 2315 / 2315 Output Total 2575 / 2575 2485 / 2485 999 / 2049 1950 / 1950 Balance -1195 / -1195 -474 / -474 175 / -875 365 / 365 Weight 122 lb 2 oz 118 lb 8 oz 116 lb 7 oz 119 lb 2 oz Microbiology Reports for the Last 24 Hours: Microbiology 08/27/20 10:45 Sputum - Expectorated Sputum Gram Stain - Final 08/27/20 10:45 Sputum - Expectorated Sputum Sputum Culture - Preliminary Radiology Reports for the Last 24 Hours: 09/03/20 CXR: Impression: 1. Opacities in both bases and mid lung regions may represent atelectasis or pneumonia. 2. There may be mild bilateral pleural effusions. - Constitutional no acute distress, cachectic - *Routine HEENT Exam Head: Present: normocephalic ENT: Present: mucous membranes moist - *Routine Neck Exam Present: supple, full ROM - *Routine Respiratory Exam Absent: respiratory distress Comments: good air movement with bibasilar rales and scattered rhonchi throughout - *Routine Cardiovascular Exam Present: RRR - *Routine Abdominal Exam Present: soft, normoactive bowel sounds. Absent: tenderness, guarding, firm, rigid - *Routine Extremities Exam Absent: edema Comments: NATALY wrap loosely in place to BLE - *Routine Neurological Exam Present: alert oriented to person and place, follows commands, speech is somewhat garbled but intelligible Assessment and Plan (1) Abnormal ankle brachial index (ELADIA) Status: Acute Category: Medical Code(s): R68.89 - Other general symptoms and signs (2) PAD (peripheral artery disease) Status: Acute Category: Medical Code(s): I73.9 - Peripheral vascular disease, unspecified (3) Decreased pedal pulses Start date: 08/23/20 Status: Acute Category: Medical Code(s): R09.89 - Other specified symptoms and signs involving the circulatory and respiratory systems (4) Left lower lobe pneumonia Status: Acute Category: Medical Code(s): J18.9 - Pneumonia, unspecified organism (5) Frequent falls Status: Acute Category: Medical Code(s): R29.6 - Repeated falls (6) Cellulitis Status: Acute Category: Medical Code(s): L03.90 - Cellulitis, unspecified (7) Onychogryposis of toenail Start date: 08/23/20 Status: Acute Category: Medical Code(s): L60.2 - Onychogryphosis (8) Onychomycosis Start date: 08/23/20 Status: Acute Category: Medical Code(s): B35.1 - Tinea unguium (9) Pain due to onychomycosis of nail Start date: 08/23/20 Status: Acute Category: Medical Code(s): B35.1 - Tinea unguium; M79.609 - Pain in unspecified limb (10) Edema of lower extremity Start date: 08/23/20 Status: Acute Category: Medical Code(s): R60.0 - Localized edema (11) Other specified symptoms and signs involving the circulatory and respiratory systems Start date: 08/23/20 Status: Acute Category: Medical Code(s): R09.89 - Other specified symptoms and signs involving the circulatory and respiratory systems (12) Anemia Status: Acute Category: Medical Code(s): D64.9 - Anemia, unspecified (13) Pleural effusion Status: Acute Category: Medical Code(s): J90 - Pleural effusion, not elsewhere classified (14) Dysphagia Status: Acute Category: Medical Code(s): R13.10 - Dysphagia, unspecified (15) Hypokalemia Status: Acute Category: Medical Code(s): E87.6 - Hypokalemia (16) Urinary retention
[2020-09-04 09:43] LABS: Coronavirus 19, PCR Not Detected (NotDetected); Influenza A, PCR Not Detected (NotDetected); Influenza B, PCR Not Detected (NotDetected)
--- NOTE | 2020-09-04 09:58 | HMH.DCSUM ---
General - General Admission date:: 08/23/20 Discharge date: 09/04/20 HPI HPI: Mr Monterroso was an 85-year-old male patient who had not seen a physician in the last 60 years. He took no medicines on a regular basis. He had been having difficulty with his left lower leg with pain. He did have a fall in the p.m. of 08/20/20 and spent the night on the floor. Neighbors did check on him and felt like he was functioning satisfactorily. To note, much of the history was obtained from his daughter who was present in the emergency room. She stated his mental status was fine at that point. On 08/22/20, disorientation was noted. He felt like he was talking with his . He continued to complain of left lower leg pain and erythema was noted. He was brought to the emergency room for evaluation. With evaluation in the emergency room, white blood cell count was 9900 with a hemoglobin of 11.2 and hematocrit of 35.5. Blood chemistries were satisfactory. BUN was 32 and creatinine 1.4. Lactate was 1.8. Chest x-ray showed patchy left lower lobe infiltrate with small effusion. CT of the head was without any acute findings. 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 He was started on Rocephin and then admitted for further evaluation and treatment with podiatry consult. Hospital Course Hospital Course: The patient was seen on the day of admission by podiatry who debrided toenails and dressed left lower extremity at the area of cellulitis. It was noted that patient had absent pedal and post-tibial pulses and delayed capillary refill for which ELADIA was ordered. By the following morning, he remained stable and left lower extremity edema had improved. Disposition was discussed with daughters at the bedside and case management was consulted as well at PT. His ELADIA returned highly abnormal and cardiology recommended bilateral lower extremity runoff to further evaluate his peripheral arterial disease. He agreed to proceed and was taken to the asset availability leader on 08/24/20 and underwent successful percutaneous revascularization. By the morning of 08/25/20, he remained stable. He had no lower extremity pain and edema continued to improve although erythema remained. Physical therapy saw the patient and felt he would require short-term rehab due to his severe risk for falls, however, his family wanted to take him home possibly with home health. His Echo showed normal LVEF without significant valve disease. He was felt stable for discharge from cardiology standpoint with outpatient followup in 2-3 weeks. He was felt stable for discharge from podiatry standpoint with continued antibiotic therapy per PCP and followup with podiatry in 2 weeks and with the wound care clinic for edema therapy prn. He was without oxygen for most of 08/25/20, however, he developed tachycardia overnight and oxygen was reinstituted. He remained clinically stable but had decreased oxygen saturations without oxygen. Chest x-ray showed worsening of pleural infiltrates and effusion. Blood cultures were negative and antibiotic was changed to Invanz empirically. His IVF rate was decreased and metoprolol was added for rate control. By the morning of 08/27/20, nursing had reported difficulties with swallowing and choking and speech consult was ordered along with modified barium swallow. 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 He received lasix without subsequent urinary output and bladder scan showed large amount of urine. Hayes catheter was inserted and drained greater than 1200ml of urine. Urinalysis was ordered which showed 3+ blood and 2+ leuk esterase and 3+ bacteria. He remained on IV vancomycin and Invanz. Dressing changes to bilateral
--- NOTE | 2020-09-04 10:52 | PC.NURSE ---
Skin tear noted to the left wrist, non adhesive dressing and tagaderm applied.
--- NOTE | 2020-09-04 10:57 | HMH.PHACLD ---
Emir Monterroso has received discharge medication counseling on the following medications: PATIENT HAD PERIPHERAL STENT(S). MD DISCHARGED TO [facility] ON CLOPIDOGRL 75 MG DAILY, ASPIRIN 81 MG DAILY, AND ATORVASTATIN 40 MG HS.
--- NOTE | 2020-09-04 12:09 | PC.NURSE ---
Report called to [facility], gave Geneta report, notified logan pt is ready to be discharged.
== END 2020-09-04 12:36 | DRG 252 ==
LOC: ER 14:22 → 2ND 15:19
PROVIDERS: Family Medicine; Internal Medicine; Nurse Practitioner Family; Physician Assistant; Podiatrist; Surgery; Admitting Provider Family Medicine; Emergency Provider Internal Medicine; Visit Provider Family Medicine
PROC: 047L3DZ Dilation of Left Femoral Artery with Intraluminal Device, Percutaneous Approach (ICD-10-PCS; principal; 2020-08-24 14:25)
PROC: 0DJ08ZZ Inspection of Upper Intestinal Tract, Via Natural or Artificial Opening Endoscopic (ICD-10-PCS; CPT 43235; principal; 2020-08-29 08:15)
DX: I73.9 Peripheral vascular disease, unspecified (principal); J18.9 Pneumonia, unspecified organism; R64 Cachexia; Z68.1 Body mass index [BMI] 19.9 or less, adult; L03.116 Cellulitis of left lower limb; J90 Pleural effusion, not elsewhere classified; I70.92 Chronic total occlusion of artery of the extremities; F17.210 Nicotine dependence, cigarettes, uncomplicated; R29.6 Repeated falls; I77.1 Stricture of artery; D53.9 Nutritional anemia, unspecified; R13.10 Dysphagia, unspecified; R60.9 Edema, unspecified; E87.6 Hypokalemia; R33.9 Retention of urine, unspecified; K44.9 Diaphragmatic hernia without obstruction or gangrene; K22.2 Esophageal obstruction; K20.90 Esophagitis, unspecified without bleeding; B35.6 Tinea cruris; R00.0 Tachycardia, unspecified
CPT/HCPCS: 36415; 37226; 70371; 70450; 71045; 71046; 73620; 74220; 80048; 80053; 80061; 80202; 80305; 81001; 82607; 82746; 82962; 83605; 83880; 84145; 85007; 85025; 85347; 85651; 86140; 87040; 87070; 87086; 87102; 87116; 87205; 87206; 88305; 88312; 92610; 92611; 93005; 93306; 93923; 94640; 94760; 94761; 96365; 96367; 96375; 97110; 97162; 97530; 99152; 99153; 99285; 99291; C1725; C1760; C1766; C1769; C1876; J0456; J1335; J1644; J2704; J3370; Q9966; U0003